=== PATIENT | male | born 1975 | race Caucasian/White ===

== ENCOUNTER 2017-02-03 16:53 | Emergency (ER) | payer BC ==
[~2017-02-03] VITALS: Ht 182.9 cm; Wt 77.8 kg
[~2017-02-03 16:53] MED LIST: LAMO200T35 PO; LPT/20 PO
[2017-02-03 17:08] VITALS: TEMP 36.7; Ht 182.9 cm; Wt 77.8 kg
[2017-02-03] MEDS ORDERED: CYNI1000 INJ (17:25)
[2017-02-03] MEDS ORDERED: LPT/20 PO (17:25)
[2017-02-03] MEDS ORDERED: LSN5 PO (17:25)
[2017-02-03] MEDS ORDERED: LAMO200T35 PO (17:25)
[2017-02-03] MEDS ORDERED: ADAL1KIT SC (17:25)
[2017-02-03] MEDS ORDERED: FLX10 PO (17:26)
[2017-02-03] MEDS ORDERED: PRED10TA PO (17:26)
[2017-02-03] MEDS ORDERED: KETOROLAC TROMETHAMINE 30 MG/ML VIAL IV STA (17:38)
--- NOTE | 2017-02-03 17:44 | EMERGENCY ROOM VISIT NOTE ---
History Report prepared by Shady: Marialuisa Laboy Under the Supervision of: Dr. Cade Tian M.D. 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 He notes a lump on his right jaw. He reports difficulty swallowing, swollen neck, and difficulty chewing. He currently rates his pain a 5/10 in severity. He also notes a possible injury to his neck and shoulders two weeks ago when he was working under his vehicle. He has seen his PCP and was treated for his shoulder pain. He notes pelvic pain. He denies any ear aches, tooth aches, fevers, post nasal drip, shortness of breath, trauma, bug bites, or headache. He has a history of HTN and ankylosing spondylitis, for which he takes Humira. He also takes Lipitor. 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 He notes difficulty swallowing, difficulty chewing, and swollen neck. He notes shoulder pain and pelvic pain. He denies any ear aches, tooth aches, post nasal drip, trauma, or bug bites. Review of Systems See HPI for pertinent positives & negatives. A total of 10 systems reviewed and were otherwise negative. Past Medical & Surgical Medical Problems: (1) Ankylosing spondylitis (2) Hypertension Old medical records were reviewed. Nurse's notes were reviewed and I agree with. Family History Heart disease Hypertension Social History Smoking Status: Never Smoker Alcohol Use: none Drug Use: none Marital Status: Housing Status: lives alone Occupation Status: employed Current/Historical Medications Scheduled Adalimumab (Humira), 1 DOSE SC Q2WKS Atorvastatin (Atorvastatin Calcium), 20 MG PO DAILY Cyanocobalamin (Cyanocobalamin), 1 DOSE INJ MONTHLY Lamotrigine (Lamictal), 200 MG PO DAILY Lisinopril (Lisinopril), 5 MG PO DAILY Prednisone (Prednisone), 10 MG PO UD Scheduled PRN Cyclobenzaprine HCl (Cyclobenzaprine HCl), 10 MG PO HS PRN for Muscle Spasms Allergies Coded Allergies: No Known Allergies (Unverified , 02/03/17) Physical Exam Vital Signs Date Time Temp Pulse Resp B/P (MAP) Pulse Ox O2 Delivery O2 Flow Rate FiO2 02/03/17 19:26 75 18 134/89 100 Room Air 02/03/17 17:08 36.7 97 18 143/92 97 Room Air Physical Exam General: Non-ill appearing young male in no acute distress. HEENT: Normal cephalic atraumatic. Pupils are equal round and reactive to light. Extraocular movements are intact. Oropharynx is pink with moist mucous membranes and mild trismus. Posterior oropharynx has no lesions or asymmetry. Floor of the mouth is soft. No swelling of the mouth lips or tongue. Neck: Supple with a midline trachea. No meningeal signs or stiffness, no JVD or bruits. No Stridor. Chest: Clear to auscultation bilaterally. No wheezes or rhonchi. No increased work of breathing. Heart: regular rate and rhythm. Abdomen: Soft nontender, nondistended without rebound guarding or rigidity. Extremities: No cyanosis clubbing or edema. No calf tenderness or assymetry Spine/Back. Non tender to palpation. No CVA tenderness Skin: Good turgor without rashes. Neurologic exam: Cranial nerves two through 12 are intact. Motor and sensation are intact and symmetrical throughout. Medical Decision & Procedures ER Provider Diagnostic Interpretation: Radiology results as stated below per my review and radiologist interpretation: CHEST ONE VIEW PORTABLE HISTORY: 41 years-old Male CHEST PAIN acute atypical chest pain COMPARISON: None available TECHNIQUE: Portable AP view of the chest FINDINGS: Cardiomediastinal and hilar silhouettes are within normal limits. Linear subsegmental atelectasis of the left lung base. No pneumothorax, pleural effusion, focal airspace consolidation or overt pulmonary edema. Bones of the chest are grossly intact. IMPRESSION: No acute cardiopulmonary process. The above report was generated using voice recognition software. It may contain grammatical, syntax or spelling errors. Electronically signed by: Lucius Reyez M.D. 02/03/2017 6:11 PM Dictated Date/Time: 02/03/2017 6:10 PM SOFT TISSUE NECK WITH HISTORY: 41 years-old Male eval for abcess, parotid gland disease acute right facial swelling with concern for possible parotid abscess. COMPARISON: None available TECHNIQUE: Multiple axial CT images of the soft tissues of the neck were obtained following the intravenous administration of 116 mL Optiray 320 IV contrast. A dose lowering technique was used consistent with the principals of STEVEN. FINDINGS: The nasopharynx, oral pharynx and hypopharynx are patent. The vallecula and piriform sinuses are within normal limits. The epiglottis and aryepiglottic folds are within normal limits. The glottis and subglottic airway are unremarkable. No peritonsillar abscess. Thyroid is homogeneous. The bilateral parotid, submandibular and sublingual glands are within normal limits. Bilateral carotid arteries are patent. The left vertebral artery is dominant. There is no significant soft tissue swelling or drainable fluid collections identified. Imaged lung apices are clear. No pathologic-appearing adenopathy. Orbits appear symmetric. Image intracranial structures demonstrate no acute abnormality. Mastoid air cells and middle ear cavities are clear. Mild mucosal thickening of the right sphenoid sinus. The remaining paranasal sinuses are generally clear. Mild intervertebral disc space narrowing with uncovertebral spurring at C5-C6. No significant odontogenic disease identified. IMPRESSION: 1. No significant soft tissue swelling, drainable fluid collection or abscess identified. Bilateral parotid and submandibular glands are within normal limits. 2. Mild intervertebral disc space narrowing with uncovertebral spurring incidentally noted at C5-C6. 3. Mild sphenoid sinus disease. The above report was generated using voice recognition software. It may contain grammatical, syntax or spelling errors. Electronically signed by: Lucius Ryeez M.D. 02/03/2017 7:23 PM Dictated Date/Time: 02/03/2017 7:13 PM Laboratory Results 02/03/17 17:50 Red Blood Count 4.48, Mean Corpuscular Volume 92.4, Mean Corpuscular Hemoglobin 32.6, Mean Corpuscular Hemoglobin Concent 35.3, Mean Platelet Volume 9.6, Neutrophils (%) (Auto) 66.5, Lymphocytes (%) (Auto) 21.7, Monocytes (%) (Auto) 9.8, Eosinophils (%) (Auto) 1.3, Basophils (%) (Auto) 0.0, Neutrophils # (Auto) 5.51, Lymphocytes # (Auto) 1.80, Monocytes # (Auto) 0.81, Eosinophils # (Auto) 0.11, Basophils # (Auto) 0.00 02/03/17 17:50 Test 02/03/17 17:50 02/03/17 18:15 White Blood Count 8.29 K/uL (4.8-10.8) Red Blood Count 4.48 M/uL (4.7-6.1) Hemoglobin 14.6 g/dL (14.0-18.0) Hematocrit 41.4 % (42-52) Mean Corpuscular Volume 92.4 fL (80-100) Mean Corpuscular Hemoglobin 32.6 pg (25-34) Mean Corpuscular Hemoglobin Concent 35.3 g/dl (32-36) Platelet Count 166 K/uL (130-400) Mean Platelet Volume 9.6 fL (7.4-10.4) Neutrophils (%) (Auto) 66.5 % Lymphocytes (%) (Auto) 21.7 % Monocytes (%) (Auto) 9.8 % Eosinophils (%) (Auto) 1.3 % Basophils (%) (Auto) 0.0 % Neutrophils # (Auto) 5.51 K/uL (1.4-6.5) Lymphocytes # (Auto) 1.80 K/uL (1.2-3.4) Monocytes # (Auto) 0.81 K/uL (0.11-0.59) Eosinophils # (Auto) 0.11 K/uL (0-0.5) Basophils # (Auto) 0.00 K/uL (0-0.2) RDW Standard Deviation 44.4 fL (36.4-46.3) RDW Coefficient of Variation 13.3 % (11.5-14.5) Immature Granulocyte % (Auto) 0.7 % Immature Granulocyte # (Auto) 0.06 K/uL (0.00-0.02) Erythrocyte Sedimentation Rate 12 mm/hr (0-14) Anion Gap 3.0 mmol/L (3-11) Est Creatinine Clear Calc Drug Dose 116.2 ml/min Estimated GFR () 120.8 Estimated GFR (Non- 104.2 BUN/Creatinine Ratio 8.5 (10-20) Uric Acid 4.5 mg/dl (2.6-7.2) Calcium Level 8.9 mg/dl (8.5-10.1) Total Bilirubin 0.3 mg/dl (0.2-1) Direct Bilirubin 0.1 mg/dl (0-0.2) Aspartate Amino Transf (AST/SGOT) 11 U/L (15-37) Alanine Aminotransferase (ALT/SGPT) 34 U/L (12-78) Alkaline Phosphatase 81 U/L (45-117) C-Reactive Protein 1.51 mg/dl (0-0.29) Total Protein 7.1 gm/dl (6.4-8.2) Albumin 3.9 gm/dl (3.4-5.0) Lipase 578 U/L (73-393) Lyme Disease IgG Antibody NEG (NEG) Lyme Disease IgM Antibody NEG (NEG) Monoscreen NEG (NEG) Influenza Type A Antigen Neg for Influ A (NEG) Influenza Type B Antigen Neg for Influ B (NEG) Laboratory studies as stated above per my review. Medications Administered Medications (Trade) Dose Ordered Sig/Junie Route Start Time Stop Time Status Last Admin Dose Admin Ketorolac Tromethamine (Toradol Inj) 30 mg NOW STAT IV 02/03/17 17:38 02/03/17 17:41 DC 02/03/17 18:40 30 MG ECG Indication: other (throat pain) Rate (beats per minute): 91 Rhythm: normal sinus Findings: no acute ischemic change, no ectopy Change: Rate has increased when compared to 07/20/2014. ED Course 1728: Past medical records reviewed. The patient was evaluated in room C2B, and a complete history and physical examination were performed. 1728: Ordered Toradol 30 mg IV 1729: I reassessed the patient at this time. He is feeling better and resting comfortably. 1749: I reassessed the patient at this time. He is feeling better and resting comfortably. I discussed the results and treatment plan with the patient. I answered all pertaining questions that he had. He expressed understanding and verbalized agreement. The patient will be discharged home. Medical Decision Allergies Differentials include, but are not limited to; viral illness, abscess , parotid gland disease, infection and Lyme disease. This patient comes in as described above. He's having pain along his right lateral jaw. Also in the anterior neck, it hurts when he swallows. He appears non-ill appearing. He has no headache and he has no meningeal signs or stiffness. He has nothing to suggest meningitis encephalitis or sepsis. The floor his mouth is soft does not suggest Ludwigs angina. His posterior oropharynx is wide open. She also has some joint aches. He is on Humira for ankylosing spondylitis. IV access established and he was given IV Toradol. Multiple blood testing was obtained. His white count is not elevated, sedimentation rate is not elevated either . CRP is mildly elevated. He has no significant electrolyte or metabolic abnormalities. Chest x-ray was unremarkable. I did a CAT scan of soft tissue of his neck. It was unremarkable. There is no abscess or any parotid disease. I do not think he has mumps. He has no abscess seen. Influenza and mono were both negative. This may be more of some sort of viral illness. He is nontoxic. I will have him continue to use [id number] ibuprofen and/or acetaminophen but do not exceed the [id number] recommended dosages. He should follow-up with his regular doctor in 1-2 days. Return to ER if: Increasing pain, worsening of symptoms, any new problems or concerns. Medication Reconcilliation Current Medication List: was personally reviewed by me Blood Pressure Screening Patient's blood pressure: Elevated blood pressure Blood pressure disposition: Referred to PCP Impression Primary Impression: Sorethroat Additional Impressions: Jaw pain Anterior neck pain Scribe Attestation The scribe's documentation has been prepared under my direction and personally reviewed by me in its entirety. I confirm that the note above accurately reflects all work, treatment, procedures, and medical decision making performed by me. Departure Information Dispostion Home / Self-Care Referrals Joi Fink M.D. (PCP) Forms HOME CARE DOCUMENTATION FORM, IMPORTANT VISIT INFORMATION, WORK / SCHOOL INSTRUCTIONS Patient Instructions My [facility] Additional Instructions Rest. Drink plenty of fluids. Use acetaminophen/Tylenol a maximum of 2 pills every 6 hours if needed for pain Return if: Fever, worsening of symptoms, shortness of breath, any new problems or concerns Follow-up with your doctor 1-2 days for recheck Problem Qualifiers
[2017-02-03] MEDS ORDERED: OPTIRAY 320 IV PRN (17:45)
--- NOTE | 2017-02-03 18:12 | DIAGNOSTIC IMAGING REPORT ---
CHEST ONE VIEW PORTABLE HISTORY: 41 years-old Male CHEST PAIN acute atypical chest pain COMPARISON: None available TECHNIQUE: Portable AP view of the chest FINDINGS: Cardiomediastinal and hilar silhouettes are within normal limits. Linear subsegmental atelectasis of the left lung base. No pneumothorax, pleural effusion, focal airspace consolidation or overt pulmonary edema. Bones of the chest are grossly intact. IMPRESSION: No acute cardiopulmonary process. The above report was generated using voice recognition software. It may contain grammatical, syntax or spelling errors. Electronically signed by: Lucius Reyez M.D. 02/03/2017 6:11 PM Dictated Date/Time: 02/03/2017 6:10 PM
[2017-02-03 18:21] LABS: COMPLETE YES; EOS % 1.3 %; HEMATOCRIT 41.4 % (42-52); IG% 0.7 %; LYMPH % 21.7 %; MEAN CELL VOLUME 92.4 fL (80-100); MEAN CORPUSCULAR HEMOGLOBIN 32.6 pg (25-34); MEAN CORPUSCULAR HGB CONC 35.3 g/dl (32-36); MEAN PLATELET VOLUME 9.6 fL (7.4-10.4); MONO % 9.8 %; NEUT % 66.5 %; PLATELET COUNT 166 K/uL (130-400); RED BLOOD COUNT 4.48 M/uL (4.7-6.1); WHITE BLOOD COUNT 8.29 K/uL (4.8-10.8)
[2017-02-03 18:38] LABS: BUN/CREATININE RATIO 8.5 (10-20); C-REACTIVE PROTEIN 1.51 mg/dl (0-0.29); CALCIUM 8.9 mg/dl (8.5-10.1); CREATININE 0.9 mg/dl (0.60-1.40); POTASSIUM 3.4 mmol/L (3.5-5.1); URIC ACID 4.5 mg/dl (2.6-7.2)
[2017-02-03 19:22] LABS: LYME DISEASE AB IGG NEG (NEG); LYME DISEASE AB IGM NEG (NEG)
--- NOTE | 2017-02-03 19:24 | DIAGNOSTIC IMAGING REPORT ---
SOFT TISSUE NECK WITH HISTORY: 41 years-old Male eval for abcess, parotid gland disease acute right facial swelling with concern for possible parotid abscess. COMPARISON: None available TECHNIQUE: Multiple axial CT images of the soft tissues of the neck were obtained following the intravenous administration of 116 mL Optiray 320 IV contrast. A dose lowering technique was used consistent with the principals of STEVEN. FINDINGS: The nasopharynx, oral pharynx and hypopharynx are patent. The vallecula and piriform sinuses are within normal limits. The epiglottis and aryepiglottic folds are within normal limits. The glottis and subglottic airway are unremarkable. No peritonsillar abscess. Thyroid is homogeneous. The bilateral parotid, submandibular and sublingual glands are within normal limits. Bilateral carotid arteries are patent. The left vertebral artery is dominant. There is no significant soft tissue swelling or drainable fluid collections identified. Imaged lung apices are clear. No pathologic-appearing adenopathy. Orbits appear symmetric. Image intracranial structures demonstrate no acute abnormality. Mastoid air cells and middle ear cavities are clear. Mild mucosal thickening of the right sphenoid sinus. The remaining paranasal sinuses are generally clear. Mild intervertebral disc space narrowing with uncovertebral spurring at C5-C6. No significant odontogenic disease identified. IMPRESSION: 1. No significant soft tissue swelling, drainable fluid collection or abscess identified. Bilateral parotid and submandibular glands are within normal limits. 2. Mild intervertebral disc space narrowing with uncovertebral spurring incidentally noted at C5-C6. 3. Mild sphenoid sinus disease. The above report was generated using voice recognition software. It may contain grammatical, syntax or spelling errors. Electronically signed by: Lucius Reyez M.D. 02/03/2017 7:23 PM Dictated Date/Time: 02/03/2017 7:13 PM
[2017-02-03 19:26] VITALS: BP 134/89; PULSE 75; O2SAT 100
== END 2017-02-03 19:55 | disposition home or self-care (01) ==
LOC: C.EDB 16:55 → C.EDC 19:55
DX: J02.9 Acute pharyngitis, unspecified (principal); R68.84 Jaw pain; M54.2 Cervicalgia; I10 Essential (primary) hypertension; M45.9 Ankylosing spondylitis of unspecified sites in spine; Z82.49 Family history of ischemic heart disease and other diseases of the circulatory system

== ENCOUNTER 2024-07-08 13:10 | Observation (INO) ==
--- OUTSIDE RECORDS SUMMARY | 2024-07-08 13:15 | External Medical Summary | Summary of Care ---
Author Name Unknown Organization [facility] Address [address] [facility] [place] [address] Phone [phone] Care Team Providers Care Social Worker Health Services Name Role Phone Joi Fink MD Primary Care Provider + Reason for Visit * Reason Comments eRx-Medication Refill Encounter Details Date Type Department Care Team (Late st Contact Info) Description 05/12/2024 Refill Rheumatology [facility] [address] [place] [address] Jesus Trejo CRNP [address] [facility] [place] [address] Ankylosing spondylitis of multiple sites in spine (HCC) Allergies Active Allergy Reactions Criticality Noted Date Comments Adalimumab 03/26/2017 documented as of this encounter (statuses as of 05/13/2024) Medications BD Luer-Mario Syringe 25G X 5/8" 3 ML (Syringe/Needle (Disp)) USE 1 ML SUBCUTANEOUSELY ONCE A MONTH 3 Each 3 023 Active Lisinopril 5 MG Oral Tablet (Prinivil)Indic ations:HTN, goal below 130/80 TAKE 1 TABLET IN THE MORNING 90 Tablet 3 024 Active Atorvastatin Calcium 20 MG Oral Tablet (Lipitor)Indica tions:Hyperlipi demia TAKE 1 TABLET DAILY 90 Tablet 3 024 Active Celecoxib 200 MG Oral Capsule (CeleBREX)Indic ations:Ankylosi ng spondylitis of multiple sites in spine ([facility]) TAKE 1 CAPSULE BY MOUTH 2 TIMES A DAY NEEDED WITH MORNING AND EVENING MEALS 180 Capsule 3 024 Active lamoTRIgine 200 MG Oral Tablet (LaMICtal)Indic ations:Bipolar II disorder (HCC) Take 1/2 tablet in morning and 1 tablet at bedtime 135 Tablet 1 025 Active Cyanocobalamin 1000 MCG/ML Injection Solution (Cyanocobalamin )Indications:Pe rnicious anemia INJECT DIRECTED 1ML (1,000 MCG) EVERY 30 DAYS . 3 mL 2 025 Active Cosentyx Sensoready (300 MG) 150 MG/ML Subcutaneous Solution Auto-injector (secukinumab)In dications:Ankyl osing spondylitis of multiple sites in spine (HCC) INJECT THE CONTENTS OF 2 PENS (300 MG) UNDER THE SKIN EVERY 4 WEEKS 2 mL 5 025 Active Cosentyx Sensoready (300 MG) 150 MG/ML Subcutaneous Solution Auto-injector (secukinumab)In dications:Ankyl osing spondylitis of multiple sites in spine (HCC) INJECT THE CONTENTS OF 2 PENS (300 MG) UNDER THE SKIN EVERY 4 WEEKS 2 mL 5 024 2024 Discontinued documented as of this encounter (statuses as of 05/13/2024) Active Problems Problem Noted Date Diagnosed Date Encounter for long-term (current) use of medicat ions 11/12/2022 Ankylosing spondylitis of multiple sites in spin e 04/28/2019 Bipolar affective disorder, current episode hypo manic 04/28/2019 Immunocompromised patient 10/27/2018 Trismus 02/12/2017 Bipolar disorder Other vitamin B12 deficiency anemia documented as of this encounter (statuses as of 05/13/2024) Resolved Problems Problem Noted Date Diagnosed Date Resolved Date Ankylosing spondylitis 03/25/201711/12 Acute parotitis 02/12/2017 03/25/2017 ADVANCE DIRECTIVE INFORMATION 12/22/2005 12/08/2016 Overview (12/22/2005): No, Advance Directive brochure given to patient. Dyslipidemia, goal to be determined 03/14/2012 Major depressive disorder Overview (12/15/2016): ICD-10 update of inactive term Ankylosing spondylitis 08/01 documented as of this encounter (statuses as of 05/13/2024) Immunizations Name Administration Dates Next Due COVID-19, mRNA, LNP-s, PF, B ooster, 100mcg/0.5mg (Moderna) 04/16/2021 Hepatitis B, 20+ yrs 05/10/2023,12/08/2022,11/05 Pneumococcal Conjugate Vacc, 13 Valent (Prevnar) 04/26/2018 Pneumococcal Polysaccharide PPV23 (Pneumovax) 10/27/2018 Seasonal Influenza, PF, 6 M & above, IM , (FluLaval or Fluzone) 11/05/2022,11/04/2021,10/31/2020,11/01,10/27/2018,11/29/2017,12/08/2016 Seasonal Influenza, Quadriva lent, No Preserve, IM 01/14/2016 Seasonal Influenza, Trivalen t, (IIV3), PF, (Fluzone) 12/09/2023 TD, Preservative Free 03/15/2018 TDAP, Age 7 and older, IM (Adacel) 08/15/2007 documented as of this encounter Social History Tobacco Use Types Packs/Day Years Used Date Smoking Tobacco: Never Smokeless Tobacco: Never Alcohol Use Standard Drinks/Week Comments Yes 5 (1 standard drink = 0.6 oz pur e alcohol) occasional PHQ-2 Answer Date Recorded PHQ Adult Total Score 0 05/29/2021 Hunger Vital Sign Answer Date Recorded Within the past 12 months, y ou worried that your food would run out before you got the money to buy more. Never true 12/08/19 24 Within the past 12 months, t he food you bought just didn't last and you didn't have money to get more. Never true 12/08/2023 Childcare Answer Date Recorded Do you feel overwhelmed with taking care of a child, family member or friend? No 12/08/2023 Does your family need help f inding childcare? (Household - for ages 0-17 years) Not on file 12/08/2023 Clothing Answer Date Recorded Have you been unable to get clothing when it was really needed? No 12/08/2023 Is your family able to get c lothes or diapers when needed? (Household - for ages 0-17 years) Not on file 12/08/2023 Personal Safety Answer Date Recorded Do you feel unsafe or have concerns for your saf ety? No 12/08/2023 Do you have concerns for you r family's safety? (Household - for ages 0-17 years) Not on file 12/08/2023 Utilities Answer Date Recorded Do you have trouble paying y our heating, water, or electric bill? No 12/08/2023 Is your family able to pay t he heat, water, or electric bill? (Household - for ages 0-17 years) Not on file 12/08/2023 Does your family have access to good internet? (Household - for ages 0-17 years) Not on file 12/08/2023 Employment Status Answer Date Recorded Are you unemployed or without regular income? No 12/08/2023 Does the household have a re lar source of income? (Household - for ages 0-17 years) Not on file 12/08/2023 Social Connections Answer Date Recorded How often do you feel lonely or isolated from th ose around you? Rarely 12/08/2023 Financial Resource Strain Answer Date R ecorded Do you have any trouble payi ng for your medications, or do you think you might in the future? No 12/08/2023 Does your family have troubl e paying for medicine? (Household - for ages 0-17 years) Not on file 12/08/2023 Transportation Needs Answer Date Record ed Do you have trouble getting a ride to medical visits or work? (Adult - for ages 18 years and over) Not on file 12/08/2023 Does your family have a hard time getting a ride to doctors visits? (Household - for ages 0-17 years) Not on file 12/08/2023 Has lack of transportation k ept you from medical appointments, meetings, work, or from getting things needed for daily living? Check all that apply. No 12/08/2023 Do you (or your family) have trouble finding or paying for a ride (transportation)? (Household - for ages 0-17 years) Not on file 12/08/2023 Housing Stability Answer Date Recorded Do you currently live in a s helter or have no steady place to sleep at night? No 12/08/2023 Do you think you are at risk of becoming homeless? (Adult - for ages 18 years and over) Not on file 12/08/2023 Does your family worry about paying for your home or becoming homeless? (Household - for ages 0-17 years) Not on file 1 Are you homeless or worried that you might be in the future? No 12/08/2023 Are you (or your family) caitie eless or worried that you might be in the future? (Household - for ages 0-17 years) Not on file Food Insecurity Answer Date Recorded Do you need food for this week? No 12/08/2023 Are you able to get enough f ood for your family? (Household - for ages 0-17 years) Not on file 12/08/2023 Does your family need food t his week? (Household - for ages 0-17 years) Not on file 12/08/2023 Do you always have enough fo od for your family? (Household - for ages 0-17 years) Not on file 12/08/2023 Food Insecurity Answer Date Recorded Within the past 12 months, y ou worried that your food would run out before you got the money to buy more. Never true 12/08/19 24 Within the past 12 months, t he food you bought just didn't last and you didn't have money to get more. Never true 12/08/2023 Do you need food for this week? No 12/08/2023 Sex and Gender Information Value Date Recorded Sex Assigned at Male 10/27/2018 11:03 AM EDT Legal Sex Male 5:27 AM EST Gender Identity Male 10/27/2018 11:03 AM EDT Sexual Orientation Straight 10/27/2018 11 :03 AM EDT Occupation Industry Job Start Date Job End Date Not on file Not on file Not on file Not on file documented as of this encounter Miscellaneous Notes * Telephone Encounter - Whitney Johnson, [facility] - 05/13/2024 8:41 AM EDTSigned Prescriptions: Disp Refills Cosentyx Sensoready (300 MG) 150 MG/ML Sub*2 mL 5 Sig: INJECT THE CONTENTS OF 2 PENS (300 MG) UNDER THE SKIN EVERY 4 WEEKSAuthorizing Provider: JESUS TREJO User: WHITNEY JOHNSON * Telephone Encounter - Whitney Johnson RP - 05/13/2024 8:40 AM EDT Rheumatology: Refill Request(s) Per review of the refill parameters, Medication was refilled Whitney Johnson RPh [facility] Clinical Pharmacist Rheumatology Department 05/13/2024,8:40 AM * Telephone Encounter - Pasha Ramirez - 05/12/2024 2:59 PM EDTPending Prescriptions: Disp Refills Cosentyx Sensoready (300 MG) 150 MG/ML Sub*2 mL 5 Sig: INJECT THE CONTENTS OF 2 PENS (300 MG) UNDER THE SKIN EVERY 4 WEEKS * Telephone Encounter - Pasha Ramirez - 05/12/2024 2:57 PM EDT Did you pend patient's preferred pharmacy and medication before forwarding?yes Pharmacy: [facility] [address] Pending Prescriptions: Disp Refills Cosentyx Sensoready (300 MG) 150 MG/ML Claros*2 mL 5 Sig: INJECT THE CONTENTS OF 2 PENS (300 MG) UNDER THE SKIN EVERY 4 WEEKS Last Visit: Visit date not found (in office), Visit date not found (telemedicine) Next Visit: 11/22/2024 If no future appointments scheduled, and last appointment is greater than a year ago, please schedule patient for a follow-up appointment Last date the medication was ordered: 12/14/2023 Is this request for a controlled substance?No Urine Drug Screen:No results found for this or any previous visit. Patient Phone Numbers Labs: Lab Results Component Value Date/Time CREAT 1.1 11/23/2023 10:40 AM CREAT 1.1 12/01/2019 01:53 PM POTASSIUM 4.0 11/23/2023 10:40 AM POTASSIUM 3.8 12/01/2019 01:53 PM TSH 1.69 12/08/2016 09:03 AM LDL 81 11/23/2023 10:40 AM LDL 73 04/12/2019 01:42 PM ALT 27 11/23/2023 10:40 AM ALT 23 10/25/2019 03:36 PM HGBA1C 5.6 04/12/2019 01:42 PM documented in this encounter Plan of Treatment Upcoming Encounters Date Type Department Care Team (Late st Contact Info) Description 07/31/2024 2:30 PM EDT Telemedicine Psychiatry, [facility] [address] [place] [address] Jessy Booker MD [address] [place] [address] 09/06/2024 2:30 PM EDT Office Visit Otolaryngology [facility] [address] [place] [address] [address] Miguel Lewis PA-C [address] [place] [address] 11/09/2024 1:00 PM EDT Office Visit General Internal Medicine [facility] [address] [facility] [address] Joi Fink MD [address] [place] [address] 11/22/2024 3:00 PM EDT Office Visit Rheumatology [facility] [address] [place] [phone] Jesus Trejo CRNP [address] [facility] [place], [place] [address] Scheduled Procedures Name Priority Associated Diagnoses Date/Ti me COLONOSCOPY FLEXIBLE PROXIMA L DIAGNOSTIC Recall History of colonic polyps Health Maintenance Due Date Last Done Comments Fecal Occult Blood Test 2018 Sigmoidoscopy 2018 Colonoscopy 05/19/2023 05/18/2018, 05/18/2018 Zoster Vaccines (1 of 2) 07/27/2023 COVID-19 Vaccine (2 - season) 2023 04/16/2021 Pneumococcal Vaccine: 50+ Years (3 of 3 - PCV20 or PCV21) 10/28/2023 10/27/2018, 04/26/2018 Colorectal Cancer Screening 12/12/2023 Cologuard 12/10/2026 12/11/2023, 11/22, 12/05/2023 DTap/Tdap Vaccines (3 - Td or Tdap) 03/15/2028 03/15/2018, 08/15/2007 Lipid Panel 11/22/2028 11/23/2023, 10/23, 02/18/2022, Additional history exists RETIRED - COLONOSCOPY-EVERY 5 YRS AGES 18-100 Discontinued 05/18/2018, 05/18/2018 Influenza Vaccine (FLU shot) Completed 12/09/2023, 11/05/2022, 11/04/2021, Additional history exists HPV (Gardasil) Vaccine Aged Out No lo nger eligible based on patient's age to complete this topic MENINGOCOCCAL (MENACTRA/MENVEO) Aged Out No longer eligible based on patient's age to complete this topic Meningitis B Vaccine (Bexsero/Trumemba) Aged Out No longer eligible based on patient's age to complete this topic documented as of this encounter Medical Devices Not on filedocumented as of this encounter Visit Diagnoses Diagnosis Ankylosing spondylitis of multiple sites in spine (HCC) Ankylosing spondylitis documented in this encounter Care Teams Social Worker Health Services Relationship Specialty Start Date End Date Joi Fink MD [address] [place] [address] PCP - General Internal Medicine 12/04/13 documented as of this encounter
--- OUTSIDE RECORDS SUMMARY | 2024-07-08 13:15 | External Medical Summary | Summary of Care ---
Author Name Unknown Organization [facility] Address [address] [facility] [place] [address] Phone [phone] Care Team Providers Care Slip Operator Name Role Phone Giselle Fink MD Primary Care Provider + Reason for Visit * Reason Comments eRx-Medication Refill Encounter Details Date Type Department Care Team (Late st Contact Info) Description 04/30/2024 Refill General Internal Medicine [facility] [address] [facility] [place] [address] Giselle Fink MD [address] [facility] [address] Pernicious anemia Allergies Active Allergy Reactions Criticality Noted Date Comments Adalimumab 03/26/2017 documented as of this encounter (statuses as of 05/01/2024) Medications BD Luer-Mario Syringe 25G X 5/8" 3 ML (Syringe/Needle (Disp)) USE 1 ML SUBCUTANEOUSELY ONCE A MONTH 3 Each 3 023 Active Lisinopril 5 MG Oral Tablet (Prinivil)Indic ations:HTN, goal below 130/80 TAKE 1 TABLET IN THE MORNING 90 Tablet 3 024 Active Cosentyx Sensoready (300 MG) 150 MG/ML Subcutaneous Solution Auto-injector (secukinumab)In dications:Ankyl osing spondylitis of multiple sites in spine (HCC) INJECT THE CONTENTS OF 2 PENS (300 MG) UNDER THE SKIN EVERY 4 WEEKS 2 mL 5 024 Active Atorvastatin Calcium 20 MG Oral Tablet (Lipitor)Indica tions:Hyperlipi demia TAKE 1 TABLET DAILY 90 Tablet 3 024 Active Celecoxib 200 MG Oral Capsule (CeleBREX)Indic ations:Ankylosi ng spondylitis of multiple sites in spine (HCC) TAKE 1 CAPSULE BY MOUTH 2 TIMES [...] DAYS . 3 mL 2 025 Active Cyanocobalamin 1000 MCG/ML Injection Solution (Cyanocobalamin )Indications:Pe rnicious anemia INJECT DIRECTED 1ML (1,000 MCG) EVERY 30 DAYS . 3 mL 2 024 2024 Discontinued documented as of this encounter (statuses as of 05/01/2024) Active Problems Problem Noted Date Diagnosed Date Encounter for long-term (current) use of medicat ions 11/12/2022 Ankylosing spondylitis of multiple sites in spin e 04/28/2019 Bipolar affective disorder, current episode hypo manic 04/28/2019 Immunocompromised patient 10/27/2018 Trismus 02/12/2017 Bipolar disorder Other vitamin B12 deficiency anemia documented as of this encounter (statuses as of 05/01/2024) Resolved Problems Problem Noted Date Diagnosed Date Resolved Date Ankylosing spondylitis 03/25/201711/12 Acute parotitis 02/12/2017 03/25/2017 ADVANCE DIRECTIVE INFORMATION 12/22/2005 12/08/2016 Overview (12/22/2005): No, Advance Directive brochure given to patient. Dyslipidemia, goal to be determined 03/14/2012 Major depressive disorder Overview (12/15/2016): ICD-10 update of inactive term Ankylosing spondylitis 08/01 documented as of this encounter (statuses as of 05/01/2024) Immunizations Name Administration Dates Next Due COVID-19, [...] No 12/08/2023 Does the household have a [facility] source of income? (Household - for ages [...] encounter Miscellaneous Notes * Telephone Encounter - Giselle Fink MD - 05/01/2024 2:58 PM EDTSigned Prescriptions: Disp Refills Cyanocobalamin 1000 MCG/ML Injection Solut*3 mL 2 Sig: INJECT DIRECTED 1ML (1,000 MCG) EVERY 30 DAYS . Authorizing Provider: GISELLE FINK * Telephone Encounter - Ariella Del Toro LPN - 05/01/2024 1:38 PM EDT Pending Prescriptions: Disp Refills Cyanocobalamin 1000 MCG/ML Injection Solut*3 mL 2 Sig: INJECT DIRECTED 1ML (1,000 MCG) EVERY 30 DAYS . * Telephone Encounter - Ariella Del Toro LPN - 05/01/2024 1:37 PM EDT Did you pend patient's preferred pharmacy and medication before forwarding?yes Pharmacy: [id number] Pending Prescriptions: Disp Refills Cyanocobalamin 1000 MCG/ML Injection Solu*3 mL 2 Sig: INJECT DIRECTED 1ML (1,000 MCG) EVERY 30 DAYS . Last Visit: 12/09/2023 (in office), Visit date not found (telemedicine) Next Visit: 11/09/2024 If no future appointments scheduled, and last appointment is greater than a year ago, please schedule patient for a follow-up appointment Last date the medication was ordered: 10-14-23 Is this request for a controlled substance?No [...] 03:36 PM HGBA1C 5.6 04/12/2019 01:42 PM * Telephone Encounter - Pasha Ramirez - 04/30/2024 7:07 PM EDTPending Prescriptions: Disp Refills Cyanocobalamin 1000 MCG/ML Injection Solut*3 mL 2 Sig: INJECT DIRECTED 1ML (1,000 MCG) EVERY 30 DAYS . documented in this encounter Plan of Treatment Upcoming Encounters Date Type Department Care Team (Late st Contact Info) Description 07/31/2024 2:30 PM EDT Telemedicine Psychiatry, [facility] [address] [address] Jessy Booker MD [address] [place] [address] 09/06/2024 2:30 PM EDT Office Visit Otolaryngology [facility] [address] [address] [address] Miguel Lewis PA-C [address] [address] 11/09/2024 1:00 PM EDT Office Visit General Internal Medicine [facility] [address] [facility] [place] [address] Giselle Fink MD [address] [place] [address] 11/22/2024 3:00 PM EDT Office Visit Rheumatology [facility] [address] [place] [phone] Rohini Bettencourt CRNP [address] [facility] [place] [address] Scheduled Procedures Name Priority Associated Diagnoses Date/Ti [...] as of this encounter Visit Diagnoses Diagnosis Pernicious anemia documented in this encounter Care Teams Slip Operator Relationship Specialty Start Date End Date Giselle Fink MD [address] [place] [address] PCP - General Internal Medicine 12/04/13 documented as of this encounter
--- OUTSIDE RECORDS SUMMARY | 2024-07-08 13:16 | External Medical Summary | Summary of Care ---
Author Name Unknown Organization [facility] Address [address] [facility] [place] [address] Phone [phone] Care Team Providers Care Import Export Agent Name Role Phone Joi Fink MD Primary Care Provider + Reason for Visit * Reason Comments Medication Management Encounter Details Date Type Department Care Team (Late st Contact Info) Description 04/17/2024 2:30 PM [facility] [address] [place] [address] Jessy Booker MD [address] [place] [address] Bipolar II disorder (HCC)* Allergies Active Allergy Reactions Criticality Noted Date Comments Adalimumab 03/26/2017 documented as of this encounter (statuses as of 04/17/2024) Medications BD Luer-Mario Syringe 25G X 5/8" 3 ML (Syringe/Needle (Disp)) USE 1 ML SUBCUTANEOUSELY ONCE A MONTH 3 Each 3 10/21/19 23 Active Cyanocobalamin 1000 MCG/ML Injection Solution (Cyanocobalamin )Indications:Pe rnicious anemia INJECT DIRECTED 1ML (1,000 MCG) EVERY 30 DAYS . 3 mL 2 10/14/19 24 Active Lisinopril 5 MG Oral Tablet (Prinivil)Indic ations:HTN, goal below 130/80 TAKE 1 TABLET IN THE MORNING 90 Tablet 3 11/30/19 24 Active Cosentyx Sensoready (300 MG) 150 MG/ML Subcutaneous Solution Auto-injector (secukinumab)In dications:Ankyl osing spondylitis of multiple sites in spine (HCC) INJECT THE CONTENTS OF 2 PENS (300 MG) UNDER THE SKIN EVERY 4 WEEKS 2 mL 5 12/14/19 24 Active Atorvastatin Calcium 20 MG Oral Tablet (Lipitor)Indica tions:Hyperlipi demia TAKE 1 TABLET DAILY 90 Tablet 3 12/16/19 24 Active Celecoxib 200 MG Oral Capsule (CeleBREX)Indic ations:Ankylosi ng spondylitis of multiple sites in spine (HCC) TAKE 1 CAPSULE BY MOUTH 2 TIMES A DAY NEEDED WITH MORNING AND EVENING MEALS 180 Capsule 3 12/16/19 24 Active lamoTRIgine 200 MG Oral Tablet (LaMICtal)Indic ations:Bipolar II disorder (HCC) Take 1/2 tablet in morning and 1 tablet at bedtime 135 Tablet 1 04/17/19 25 Active lamoTRIgine 200 MG Oral Tablet (LaMICtal)Indic ations:Bipolar II disorder (HCC) Take 1/2 tablet in morning and 1 tablet at bedtime 135 Tablet 1 12/08/19 24 025 Discontin ued(Refil l) documented as of this encounter (statuses as of 04/17/2024) Active Problems Problem Noted Date Diagnosed Date Encounter for long-term (current) use of medicat ions 11/12/2022 Ankylosing spondylitis of multiple sites in spin e 04/28/2019 Bipolar affective disorder, current episode hypo manic 04/28/2019 Immunocompromised patient 10/27/2018 Trismus 02/12/2017 Bipolar disorder Other vitamin B12 deficiency anemia documented as of this encounter (statuses as of 04/17/2024) Resolved Problems Problem Noted Date Diagnosed Date Resolved Date Ankylosing spondylitis 03/25/201711/12 Acute parotitis 02/12/2017 03/25/2017 ADVANCE DIRECTIVE INFORMATION 12/22/2005 12/08/2016 Overview (12/22/2005): No, Advance Directive brochure given to patient. Dyslipidemia, goal to be determined 03/14/2012 Major depressive disorder Overview (12/15/2016): ICD-10 update of inactive term Ankylosing spondylitis 08/01 documented as of this encounter (statuses as of 04/17/2024) Immunizations Name Administration Dates Next Due COVID-19, [...] on file documented as of this encounter Progress Notes * Jessy Booker MD - 04/17/2024 2:32 PM EST OUTPATIENT PSYCHIATRY RETURN VISIT DIVISION OF PSYCHIATRY [facility] [place] [facility] [place] [address] Name: Obed Aguilar : 1975 Date and Time Patient was Seen: 04/17/2024 at 2.30 pm Patient location: HOME. I was not in a hospital or clinic location. After connecting through [employer], patient was verified with two unique identifiers. Patient (or authorized legal merchandiser retail representative) was then informed that this was a Telemedicine visit and being conducted confidentially over secure lines. Methods to assure confidentiality were taken. Patient acknowledged consent and understanding of privacy and security of the Telemedicine visit. The patient agreed to participate. Physical Location of patient: Work CC: " I am doing well " INTERVAL HISTORY: Patient is a 48 year old male with H/O Bipolar II disorder stable on Lamictal 100 am and 200 mg po hs. Medical issues: Ankylosing spondylitis, HTN Patient seen in follow up. Pt reports doing well overall. Patient remains stable on medications. Denies any stressors. His youngest son just turned 18 and will be graduating this June. Oldest son has a job as a electrocardiographic technician and is on his own. Patient denies psychotic symptoms such as Auditory and visual hallucinations , Paranoia or other Delusions. Patient denies Suicidal ideation intent or plan. Denies recurrent thoughts of . DeniesSIB thoughts/actions. No HI thoughts Medical ROS and Side effects of Medications: Constitutional: (-) otherwise negative Eyes: (-) otherwise negative Cardiovascular: (-) otherwise negative Pulmonary: (-) otherwise negative Abdominal/GI: (-) otherwise negative Musculoskeletal: (-) otherwise negative Endocrine: (-) otherwise negative Skin: (-) otherwise negative Neurology: negative CURRENT MEDICATIONS: Current Outpatient Medications Medication Sig Dispense Refill BD Luer-Mario Syringe 25G X 5/8" 3 ML (Syringe/Needle (Disp)) USE 1 ML SUBCUTANEOUSELY ONCE A MONTH 3Each 3 Cyanocobalamin 1000 MCG/ML Injection Solution (Cyanocobalamin) INJECT DIRECTED 1ML (1,000 MCG) EVERY 30 DAYS . 3 mL 2 Lisinopril 5 MG Oral Tablet (Prinivil) TAKE 1 TABLET IN THE MORNING 90 Tablet 3 lamoTRIgine 200 MG Oral Tablet (LaMICtal) Take 1/2 tablet in morning and 1 tablet at bedtime 135 Tablet 1 Cosentyx Sensoready (300 MG) 150 MG/ML Subcutaneous Solution Auto-injector (secukinumab) INJECT THECONTENTS OF 2 PENS (300 MG) UNDER THE SKIN EVERY 4 WEEKS 2 mL 5 Atorvastatin Calcium 20 MG Oral Tablet (Lipitor) TAKE 1 TABLET DAILY 90 Tablet 3 Celecoxib 200 MG Oral Capsule (CeleBREX) TAKE 1 CAPSULE BY MOUTH 2 TIMES A DAY NEEDED WITH MORNING AND EVENING MEALS 180 Capsule 3 No current facility-administered medications for this visit. VITALS There were no vitals filed for this visit. Wt Readings from Last 3 Encounters: 03/06/24 76.2 kg (168 lb 1.6 oz) 12/09/23 73.4 kg (161 lb 14.4 oz) 11/22/23 73 kg (161 lb) There is no height or weight on file to calculate BMI. [place] Suicide Severity Rating Scale Results 04/17/2024 14:34 [place] SUICIDE SEVERITY RATING SCALE (C-SSRS) Have you wished you were or wished you could go to sleep and not wake up? (In the Past Month or Since Last Visit) No Have you had any actual thoughts of killing yourself? (In the Past Month or Since Last Visit) No Have you been thinking about how you might do this? (In the Past Month or Since Last Visit) No Have you had thoughts and had some intention of acting on them? (In the Past Month or Since Last Visit) No Have you started to work out or worked out the details of how to kill yourself? Do you intend to carry out this plan? (In the Past Month or Since Last Visit) No Have you ever done anything, started to do anything, or prepared to do anything to end your life? (Lifetime) Yes Was this within the past 3 months? No Level of Risk Moderate Protective Factors Social Support/Family;Cares about job/school;Willing to participate in less restrictive means of help;Help-Seeking Behaviors;Identifies reasons for living Risk Factors History of Depression;Anxiety MENTAL STATUS EVALUATION: Appearance: age-appropriate and casually dressed General: No acute distress Skin: no cuts or lesions on exposed skin surface Muscle strength and tone: no abnormal involuntary movements noticeable Gait and Station: not assessed, patient seen via teleconference Behavior: cooperative Speech: Normal in tone and rate Mood: Normal Affect: type - euthymic; range - full range; lability - no Associations: intact Thought Process: goal directed Abstract Reasoning: not tested Thought Content: denies suicidal ideations, homicidal ideations, auditory hallucinations, visual hallucinations, delusions, impulsivity to act out or preoccupation with violence Orientation: alert and oriented to person, place, time and situation Attention span/concentration as evidenced by: ability to sustain attention to examiner - intact Insight: fair Judgment: fair ASSESSMENT AND PLAN: Bipolar II disorder Plan: Medications: I have reviewed the patient’s controlled substance dispensing history in the Prescription Drug Monitoring Program in compliance with the [facility] regulations before prescribing a controlled substance. Patient will continue Lamictal 100 mg po am and 200 mg hs 90 days supply sent. 2. Therapy: Approximately 17 minutes was spent in psychotherapy, primarily supportive therapy with patient including addressing side effects of medication, psycho education about diagnosis. Using CBTto identify cognitive distortions and ways to modify those. 3. Labs: Labs reviewed on chart. 4. Safety Plan : Was completed at the time of initial visit 5. Psychoeducation: Treatment options and alternatives reviewed with patient who agrees with the above plan. Information about current medications was provided to the patient including reasons why medications are being used. Patient understood the risks, benefits, side-effects, and potential complications associated with changes in medications being proposed (both medications being started, and medications being discontinued or having dose changed). Patient is making an informed medical decision to follow the recommendations outlined in this note. Directed pt to call with any questions or concerns, worsening symptoms and/or ask for earlier appointment. Greater than 50% of the time was spent counseling or coordinating the care of the patient Risk assessment was performed. This is a patient being treated for chronic mental health conditionsand/or substance use disorder as characterized above; at the time of this visit, there was no indication that this patient was either a risk to self, others, or gravely disabled by symptoms of a mental illness or substance use disorder. At the time of this evaluation, pt did not appear to be an acute risk to self or others, there were enough protective factors in place, and it was deemed safe andappropriate to continue with treatment on an outpatient basis with return to clinic in the timeframe described above. We reviewed previous crisis plan should he/she experience worsening of symptoms before next follow-up appointment, including being aware of what resources to use according to the urgency and severityof symptoms. Obed Aguilar was able to verbalize understanding of the steps necessary to obtain help between appointments should be needed, from requesting a phone call, to requesting an appointment sooner, including reaching clinic after hours, accessing our system, and accessing emergency mental health and medical services, either at a local emergency department or by activating mobile crisis teams and EMS. Time Spent on Visit: 30 minutes Please note 17 minutes of counseling time over and above medication management was spent on management of mood/anxiety and current life stressors Billing code: 25343 RTC in 16 weeks Jessy Booker MD Psychiatry, [address] [address] documented in this encounter Plan of Treatment Upcoming Encounters Date Type Department Care Team (Late st Contact Info) Description 07/31/2024 2:30 PM EDT Telemedicine Psychiatry, [facility] [address] [place] [address] Jessy Booker MD [address] [place] [address] 09/06/2024 2:30 PM EDT Office Visit Otolaryngology [facility] [address] [place] [address] Miguel Lewis PA-C [address] [place] [address] 11/09/2024 1:00 PM EDT Office Visit General Internal Medicine [facility] [address] [facility] [address] [place] [address] Joi Fink MD [address] [facility] [place] [address] 11/22/2024 3:00 PM EDT Office Visit Rheumatology [facility] [address] [place] [phone] Rohini Bettencourt CRNP [address] [place] [address] [place] [address] Scheduled Procedures Name Priority Associated Diagnoses Date/Ti me COLONOSCOPY FLEXIBLE PROXIMA L DIAGNOSTIC Recall History of colonic polyps Health Maintenance Due Date Last Done Comments Fecal Occult Blood Test 2018 Sigmoidoscopy 2018 Colonoscopy 05/19/2023 05/18/2018, 05/18/2018 Zoster Vaccines (1 of 2) 07/27/2023 COVID-19 Vaccine (2 - 2023- season) 2023 04/16/2021 Pneumococcal Vaccine: 50+ Years [...] as of this encounter Visit Diagnoses Diagnosis Bipolar II disorder (HCC)- Primary Other bipolar disorders documented in this encounter Care Teams Import Export Agent Relationship Specialty Start Date End Date Joi Fink MD [address] [place] [address] [place] [address] PCP - General Internal Medicine 12/04/13 documented as of this encounter
--- OUTSIDE RECORDS SUMMARY | 2024-07-08 13:16 | External Medical Summary | Summary of Care ---
Author Name Unknown Organization [facility] [address] [facility] [address] Phone [phone] Care Team Providers Care Test Center Administrator Name Role Phone Joi Fink MD Primary Care Provider + Encounter Details Date Type Department Care Team (Late st Contact Info) Description 01/11/2024 Result Scan Unspecified Department Joi Fink MD [address] [place] [address] <No scans attached> Allergies Active Allergy Reactions Criticality Noted Date Comments Adalimumab 03/26/2017 documented as of this encounter (statuses as of 02/01/2024) Medications BD Luer-Mario Syringe 25G X 5/8" 3 ML (Syringe/Needle (Disp)) USE 1 ML SUBCUTANEOUSELY ONCE A MONTH 3 Each 3 10/21/19 23 Active Cyanocobalamin 1000 MCG/ML Injection Solution (Cyanocobalamin) Indications:Pern icious anemia INJECT DIRECTED 1ML (1,000 MCG) EVERY 30 DAYS . 3 mL 2 10/14/19 24 Active Lisinopril 5 MG Oral Tablet (Prinivil)Indica tions:HTN, goal below 130/80 TAKE 1 TABLET IN THE MORNING 90 Tablet 3 11/30/19 24 Active lamoTRIgine 200 MG Oral Tablet (LaMICtal)Indica tions:Bipolar II disorder (HCC) Take 1/2 tablet in morning and 1 tablet at bedtime 135 Tablet 1 12/08/19 24 Active Cosentyx Sensoready (300 MG) 150 MG/ML Subcutaneous Solution Auto-injector (secukinumab)Ind ications:Ankylos ing spondylitis of multiple sites in spine (HCC) INJECT THE CONTENTS OF 2 PENS (300 MG) UNDER THE SKIN EVERY 4 WEEKS 2 mL 5 12/14/19 24 Active Atorvastatin Calcium 20 MG Oral Tablet (Lipitor)Indicat ions:Hyperlipide javier TAKE 1 TABLET DAILY 90 Tablet 3 12/16/19 Active Celecoxib 200 MG Oral Capsule (CeleBREX)Indica tions:Ankylosing spondylitis of multiple sites in spine (HCC) TAKE 1 CAPSULE BY MOUTH 2 TIMES A DAY NEEDED WITH MORNING AND EVENING MEALS 180 Capsule 3 12/16/19 Active documented as of this encounter (statuses as of 02/01/2024) Active Problems Problem Noted Date Diagnosed Date Encounter for long-term (current) use of medicat ions 11/12/2022 Ankylosing spondylitis of multiple sites in spin e 04/28/2019 Bipolar affective disorder, current episode hypo manic 04/28/2019 Immunocompromised patient 10/27/2018 Trismus 02/12/2017 Bipolar disorder Other vitamin B12 deficiency anemia documented as of this encounter (statuses as of 02/01/2024) Resolved Problems Problem Noted Date Diagnosed Date Resolved Date Ankylosing spondylitis 03/25/201711/12 Acute parotitis 02/12/2017 03/25/2017 ADVANCE DIRECTIVE INFORMATION 12/22/2005 12/08/2016 Overview (12/22/2005): No, Advance Directive brochure given to patient. Dyslipidemia, goal to be determined 03/14/2012 Major depressive disorder Overview (12/15/2016): ICD-10 update of inactive term Ankylosing spondylitis 08/01 documented as of this encounter (statuses as of 02/01/2024) Immunizations Name Administration Dates Next Due COVID-19, [...] 12/08/2023 Does the household have a re gular source of income? (Household - for ages [...] ages 0-17 years) Not on file 12/08/2023 Sex and Gender Information Value Date Recorded Sex Assigned at Male 10/27/2018 11:03 AM EDT Legal Sex Male 5:27 AM EST Gender Identity Male 10/27/2018 11:03 AM EDT Sexual Orientation Straight 10/27/2018 11 :03 AM EDT Occupation Industry Job Start Date Job End Date Not on file Not on file Not on file Not on file documented as of this encounter Plan of Treatment Upcoming Encounters Date Type Department Care Team (Late st Contact Info) Description 03/06/2024 2:00 PM EST Office Visit Otolaryngology [facility] [address] [facility] [place] [address] Miguel Lewis PA-C [address] [facility] [place] [address] 04/05/2024 12:30 PM EST Telemedicine Psychiatry, [facility] [address] [facility] [place] [address] Jessy Booker MD [address] [place] [id number] 11/09/2024 1:00 PM EDT Office Visit General Internal Medicine [facility] [place] [address] [place] [address] Joi Fink MD [address] [facility] [place] [address] 11/22/2024 3:00 PM EDT Office Visit Rheumatology [facility] [address] [place] [address] Rohini Bettencourt CRNP [address] [place], [place] [address] Scheduled Procedures Name Priority Associated Diagnoses Date/Ti me COLONOSCOPY FLEXIBLE PROXIMA L DIAGNOSTIC Recall History of colonic polyps Health Maintenance Due Date Last Done Comments Fecal Occult Blood Test 2018 Sigmoidoscopy 2018 Colonoscopy 05/19/2023 05/18/2018, 05/18/2018 COVID-19 Vaccine (2 - season) 2023 04/16/2021 Colorectal Cancer Screening 12/06/2023 Zoster Vaccines (1 of 2) 02/23/2024 Pos tponed from 07/27/2023 (Patient Declined After Education) Cologuard 12/04/2026 12/05/2023 DTap/Tdap Vaccines (3 - Td or Tdap) 03/15/2028 03/15/2018, 08/15/2007 Lipid Panel 11/22/2028 11/23/2023, 10/23, 02/18/2022, Additional history exists RETIRED - COLONOSCOPY-EVERY 5 YRS AGES 18-100 Discontinued 05/18/2018, 05/18/2018 Pneumococcal Vaccine: Pediatrics (0 to 5 Years) and At-Risk Patients (6 to 64 Years) Aged Out 10/27/2018, 04/26/2018 No longer eligibl e based on patient's age to complete this topic Influenza Vaccine (FLU shot) Completed 12/09/2023, 11/05/2022, 11/04/2021, Additional history exists HPV (Gardasil) Vaccine Aged Out No lo nger eligible based on patient's age to complete this topic MENINGOCOCCAL (MENACTRA/MENVEO) Aged Out No longer eligible based on patient's age to complete this topic documented as of this encounter Medical Devices Not on filedocumented as of this encounter Procedures Procedure Name Priority Date/Time Associated Diagnosis Comments PATHOLOGY SCANNED RESULT 01/11/2024 documented in this encounter Results * PATHOLOGY SCANNED RESULT (01/11/2024) 01/11/2024 Joi Fink MD PATHOLOGY Final Re sult documented in this encounter Care Teams Test Center Administrator Relationship Specialty Start Date End Date Joi Fink MD [address] [facility] [place] [address] PCP - General Internal Medicine 12/04/13 documented as of this encounter
--- OUTSIDE RECORDS SUMMARY | 2024-07-08 13:16 | External Medical Summary | Summary of Care ---
Author Name Unknown Organization [facility] Address [address] [place] [address] Phone [phone] Care Team Providers Care Ditch Tender Name Role Phone Joi Fink MD Primary Care Provider + Reason for Visit * Reason Comments Follow Up 6 month follow up Encounter Details Date Type Department Care Team (Late st Contact Info) Description 03/06/2024 2:00 PM EST Office Visit Otolaryngology [facility] [address] [place] [address] Miguel Lewis PA-C [address] [place] [address] Bilateral impacted cerumen* Allergies Active Allergy Reactions Criticality Noted Date Comments Adalimumab 03/26/2017 documented as of this encounter (statuses as of 03/06/2024) Medications BD Luer-Mario Syringe 25G X 5/8" [...] 24 Active Celecoxib 200 MG Oral Capsule (CeleBREX)Indica tions:Ankylosing spondylitis of multiple sites in spine (HCC) TAKE 1 CAPSULE BY MOUTH 2 TIMES A DAY NEEDED WITH MORNING AND EVENING MEALS 180 Capsule 3 12/16/19 24 Active documented as of this encounter (statuses as of 03/06/2024) Active Problems Problem Noted Date Diagnosed Date Encounter for long-term (current) use of medicat ions 11/12/2022 Ankylosing spondylitis of multiple sites in spin e 04/28/2019 Bipolar affective disorder, current episode hypo manic 04/28/2019 Immunocompromised patient 10/27/2018 Trismus 02/12/2017 Bipolar disorder Other vitamin B12 deficiency anemia documented as of this encounter (statuses as of 03/06/2024) Resolved Problems Problem Noted Date Diagnosed Date Resolved Date Ankylosing spondylitis 03/25/201711/12 Acute parotitis 02/12/2017 03/25/2017 ADVANCE DIRECTIVE INFORMATION 12/22/2005 12/08/2016 Overview (12/22/2005): No, Advance Directive brochure given to patient. Dyslipidemia, goal to be determined 03/14/2012 Major depressive disorder Overview (12/15/2016): ICD-10 update of inactive term Ankylosing spondylitis 08/01 documented as of this encounter (statuses as of 03/06/2024) Immunizations Name Administration Dates Next Due COVID-19, [...] Date Smoking Tobacco: Never Smokeless Tobacco: Never Tobacco Cessation:Counseling Given: Not Answered Alcohol Use Standard Drinks/Week Comments Yes 5 [...] on file documented as of this encounter Last Filed Vital Signs Vital Sign Reading Time Taken Comments Blood Pressure - - Pulse - - Temperature 35.7 °C (96.3 °F) 03/06/2024 2:01 PM ES T Respiratory Rate - - Oxygen Saturation - - Inhaled Oxygen Concentration - - Weight 76.2 kg (168 lb 1.6 oz) 03/06/2024 2:01 P M EST Height 182.9 cm (6') 03/06/2024 2:01 PM EST Body Mass Index 22.8 03/06/2024 2:01 PM EST documented in this encounter Progress Notes * Miguel Lewis PA-C - 03/06/2024 2:08 PM EST 03/06/24 Nursing Notes: Bishnu Chew, [facility] 03/06/24 1401 Signed Chief Complaint Patient presents with Follow Up 6 month follow up Obed Aster Aguilar is a 48 year old male who presents today for a 6 month follow up for bilateral impactedcerumen. He has been using mineral oil in both ears and it has helped. He states that his ears are doing well. HISTORY OF PRESENT ILLNESS This 48 year old YO male is seen for routine cerumen removal. Ears are doing well-- using mineral oil which has helped. Denies otalgia, otorrhea, hearing changes. From last visit: Chronic cerumen impaction. Associated symptoms include bilateral aural pressure. He denies bilateral hearing loss, bilateral otalgia, bilateral otorrhea, and bilateral tinnitis. PCP attempted to irrigate but were unsuccessful. Denies hx of otologic surgeries. No hx of recurrent OM. Remaining ear review of symptoms reveals: Head trauma: denied Dizziness: vertigo denied Noise exposure: no occupational exposure and no firearm exposure Problem List Patient Active Problem List Diagnosis Bipolar disorder ([facility]) Other vitamin B12 deficiency anemia Trismus Immunocompromised patient ([facility]) Ankylosing spondylitis of multiple sites in spine ([facility]) Bipolar affective disorder, current episode hypomanic ([facility]) Encounter for long-term (current) use of medications Past Medical History: Diagnosis Date Ankylosing spondylitis ([facility]) Bipolar disorder ([facility]) Depressive disorder, not elsewhere classified Dyslipidemia, goal LDL below 130 Other vitamin B12 deficiency anemia Past Surgical History: Procedure Laterality Date COLONOSCOPY, DIAGNOSTIC (RECTUM) 05/18/2018 biopsies show adenomatous polyps/recall 5 years/COLONOSCOPY FLEXIBLE PROXIMAL DIAGNOSTIC performed by Marga Mullins DO at ENDOSCOPY [facility] EGD, FLEXIBLE, DIAGNOSTIC 05/18/2018 normal/ESOPHAGOGASTRODUODENOSCOPY (EGD), FLEXIBLE, TRANSORAL, DIAGNOSTIC performed by Marga Mullins DO at ENDOSCOPY [facility] RPR ING STEFFANY PREMIE, BLOCKED Medications Current Outpatient Medications Medication Sig Dispense Refill [...] No current facility-administered medications for this visit. Allergies Review of patient's allergies indicates: Allergen Reactions Humira [Adalimumab] Family History Family History Problem Relation Name Age of Onset Diabetes Mother Ashley Aguilar Urolithiasis Mother Ashley Aguilar Heart Disorder Mother Ashley Aguilar Diabetes Thyroid Disorder Mother Ashley Aguilar Other (Ankylosing spondylitis) Father Stan Aguilar Heart Disorder Father Stan Aguilar Heart disease and diabetes Heart attack Father Stan Aguilar Diabetes Father Stan Aguilar Bipolar Disorder Father Stan Aguilar Hypertension Father Stan Aguilar No Known Problems Grandfather (Maternal) Social History Social History Tobacco Use Smoking status: Never Smokeless tobacco: Never Substance Use Topics Alcohol use: Yes Alcohol/week: 5.0 standard drinks of alcohol Types: 5 12 oz of beer per week Comment: occasional Vaping/E-Cigarette Use Vaping/E-Cigarette Use Never User Passive Exposure No Counseling Given? No Vaping/E-Cigarette Substances Nicotine No Other No Flavoring No THC No Cannabidiol (CBD) No Vaping/E-Cigarette Devices Disposable No Pre-filled or Refillable Cartridge No Refillable Tank No Pre-filled Pod No REVIEW OF SYMPTOMS: Negative for constitutional, eyes, cardiac, pulmonary, hepatic, renal, digestive, hematologic, epileptic, syncopal, musculo-skeletal, mental health, integumentary, hypertensive, lipid, arthritic, diabetic, thyroid, or neurologic disorders (except as listed in the PMH and Problem List). PHYSICAL EXAMINATION: Vital Signs: Filed Vitals: 03/06/24 1401 Temp: 35.7 °C (96.3 °F) TempSrc: Tympanic Weight: 76.2 kg (168 lb 1.6 oz) Height: 1.829 m (6') General: this is a healthy appearing male who appears his stated age. The patient is alert and appropriately verbally conversant without hoarseness. Face: The face was inspected and no cutaneous masses or lesions were visualized. There was no erythema or edema noted. Lungs: normal respiratory effort Heart: normal rate IN ORDER TO BETTER EXAMINE THE EARS, THE PATIENT WAS EXAMINED USING THE OPERATING MICROSCOPE. FINDINGS ARE NOTED BELOW. Ears: Examination of the ears revealed that the auricles were normally formed with no lesions. The right external auditory canal was impacted with cerumen. It was removed using suction and forceps atraumatically by me. The right TM was WNL. The right middle ear space was WNL. The left external auditory canal was impacted with cerumen. It was removed using suction and forceps atraumatically by me. The left TM was WNL. The left middle ear space was WNL ASSESSMENT: 1. Bilateral impacted cerumen Plan: Cerumen removed. Return in 6 mo for cerumen removal, sooner PRN. Pt verbalized understanding and agrees with plan. Questions/Concerns addressed. Miguel Lewis PA-C [facility] [address] [place] [address] 03/06/24 documented in this encounter Nursing Notes * Bishnu Chew CMA - 03/06/2024 1:59 PM EST Chief Complaint Patient presents with Follow Up 6 month follow up Obed Aguilar is a 48 year old male who presents today for a 6 month follow up for bilateral impactedcerumen. He has been using mineral oil in both ears and it has helped. He states that his ears are doing well. documented in this encounter Plan of Treatment Upcoming Encounters Date Type Department Care Team (Late st Contact Info) Description 04/05/2024 12:30 PM EST Telemedicine Psychiatry, [address] [place] [address] Jessy Booker MD [address] [place] [phone] 09/06/2024 2:30 PM EDT Office Visit Otolaryngology [address] [place] [address] Miguel Lewis PA-C [address] [place] [address] 11/09/2024 1:00 PM EDT Office Visit General Internal Medicine [facility] [address] [place] [address] Joi Fink MD [address] [facility] [place] [address] 11/22/2024 3:00 PM EDT Office Visit Rheumatology [facility] [address] [place] [phone] Rohini Bettencourt CRNP [address] [place] [address] [employer] [place], [place] [address] Scheduled Procedures Name Priority Associated Diagnoses Date/Ti [...] PCV21) 10/28/2023 10/27/2018, 04/26/2018 Colorectal Cancer Screening 12/06/2023 Cologuard 12/04/2026 12/05/2023, 12/05/2023 DTap/Tdap Vaccines (3 - Td or [...] as of this encounter Visit Diagnoses Diagnosis Bilateral impacted cerumen- Primary Impacted cerumen documented in this encounter Care Teams Ditch Tender Relationship Specialty Start Date End Date Joi Fink MD [address] [place] [id number] PCP - General Internal Medicine 12/04/13 documented as of this encounter
--- NOTE | 2024-07-08 13:38 | Emergency Department Note ---
ED Provider Note History of Present Illness Chief Complaint: Abdominal Pain Stated Complaint: SEVERE ABD PAIN Time Seen by Provider: 07/08/24 13:16 48-year-old male who presents the emergency department with complaint of severe lower central abdominal pain. The patient reports that the pain awakened him this morning around 4 AM. He reports that the pain has persisted and slightly worsened throughout the day. The patient thought that it was constipation, and did take some Colace and Pepto-Bismol without any relief. The patient has not noticed any recent abnormal bowel movements, or darkened/bloody urine. He denies prior history of kidney stones. The patient has had prior normal colonoscopy studies. He denies any pain radiating into the back. He did initially have nausea upon awakening this morning, but that has since resolved. He denies any alleviating or aggravating factors for the pain, and rates his discomfort an 8 out of 10. Home Medications Medication Instructions Recorded Confirmed Type atorvastatin 20 mg tablet 20 mg PO DAILY 07/08/24 07/08/24 History celecoxib 200 mg capsule 200 mg PO BIDM PRN Pain 07/08/24 07/08/24 History cyanocobalamin (vitamin B-12) 1,000 mcg IM MONTHLY 07/08/24 07/08/24 History 1,000 mcg/mL injection solution lamotrigine 200 mg tablet 100 mg PO QAM 07/08/24 07/08/24 History lamotrigine 200 mg tablet 200 mg PO HS 07/08/24 07/08/24 History lisinopril 5 mg tablet 5 mg PO DAILY 07/08/24 07/08/24 History secukinumab 150 mg/mL subcutaneous 150 mg subcut UD 07/08/24 07/08/24 History pen injector (Cosentyx Pen 300 mg/2 pens () Allergies Allergy/AdvReac Type Severity Reaction Status Date / Time No Known Allergies Allergy Unverified 02/03/17 17:26 Past Med/Surg History Problem List Acute appendicitis (Acute) Anterior neck pain (Acute) Jaw pain (Acute) Sorethroat (Acute) Medical History Hypertension Ankylosing spondylitis Surgical History History of colonoscopy Social History Smoking Status: Never smoker Preferred Language: Citizen Of [place] marital status: current occupational status: employed Feels Safe at Home: Yes Physical Exam Vital Signs Vital Signs - 24 hr 07/08/24 13:13 07/08/24 14:13 07/08/24 14:31 Temperature 36.8 C Temperature Source Temporal Artery Scan Pulse Rate 55 L 53 L Pulse Rate [Apical] 50 L Respiratory Rate 18 17 Respiratory Effort / Characteristics Non-Labored Spontaneous Non-Labored Spontaneous Respiratory Depth Normal Normal Respiratory Pattern Regular Blood Pressure 148/96 H Blood Pressure [Right Arm] 142/85 H Blood Pressure Mean 113 Blood Pressure Mean [Right Arm] 104 Blood Pressure Position Sitting Blood Pressure Position [Right Arm] Semi-fowlers Pulse Oximetry 96 98 Oxygen Delivery Method Room Air Room Air Sepsis Recent Fever Within 48 Hours No Sepsis New/Unexplained Change in Mental Status N/A Sepsis Action Taken by Nursing No Action Required 07/08/24 15:00 Temperature Temperature Source Pulse Rate 53 L Pulse Rate [Apical] Respiratory Rate 18 Respiratory Effort / Characteristics Respiratory Depth Respiratory Pattern Blood Pressure 147/99 H Blood Pressure [Right Arm] Blood Pressure Mean 121 Blood Pressure Mean [Right Arm] Blood Pressure Position Blood Pressure Position [Right Arm] Pulse Oximetry 100 Oxygen Delivery Method Room Air Sepsis Recent Fever Within 48 Hours Sepsis New/Unexplained Change in Mental Status Sepsis Action Taken by Nursing CONSTITUTIONAL: Healthy and well nourished. Alert and oriented X 3. GCS 15. Patient appears in mild discomfort. HEENT: No scleral icterus or conjunctival injection. Mucous membranes are moist. RESPIRATORY: Clear to auscultation bilaterally with no wheezing, crackles, rhonchi or stridor. CARDIOVASCULAR: Regular rate and rhythm with no murmurs, rubs or gallops. GASTROINTESTINAL: Bowel sounds present in all quadrants. Patient has mild suprapubic tenderness to palpation. No CVA tenderness, McBurney's point tenderness or Rovsing sign. No bruits on auscultation, and no pulsatile masses on palpation. MUSCULOSKELETAL: Full range of motion of all joints without discomfort. INTEGUMENTARY: No rash or other significant dermatologic conditions noted. HEMATOLOGIC: No ecchymosis or petechiae. PSYCHIATRIC: Positive affect. NEUROLOGIC: No focal neurologic deficits noted. Course Course Patient history and physical exam were performed. Nursing notes were reviewed. Vital signs were reviewed, showing an elevated blood pressure. The patient is also mildly bradycardic. IV access was established, and labs were ordered and drawn. The patient was administered IV Toradol for pain, refusing any stronger analgesics, antiemetics or IV hydration. Review of labs shows a relatively normal CBC, CMP and lipase. Urinalysis does not show evidence for hematuria or signs of infection. Noncontrast CT imaging of the abdomen and pelvis shows an acute appendicitis. Findings were discussed with the patient, as well as Dr. Martin, ED attending physician, Case Management, as well as Dr. Stanley, general surgeon on-call. Dr. Stanley will be taking the patient to the OR for further surgical management. He did request that I start the patient on IV Zosyn, and this was ordered. The patient was also administered IV morphine and Zofran for better pain control. Please see Dr. Stanley's dictation for further treatment and final disposition. Prior to transfer of care to Dr. Stanley, the patient did require additional IV Dilaudid for pain control. Administered Medications Discontinued Medications Piperacillin Sod/Tazobactam Sod (Zosyn) 4.5 gm in 100 mls @ 200 mls/hr IV NOW ONE; Protocol Stop: 07/08/24 15:36 Last Infusion: 07/08/24 15:50 Dose: Infused Documented By: Admin: 07/08/24 15:16 Dose: 200 mls/hr Documented By: DIANNE Ketorolac Tromethamine (Ketorolac Tromethamine 15 Mg/Ml Vial) 10 mg IV NOW STA Stop: 07/08/24 13:27 Last Admin: 07/08/24 13:55 Dose: 10 mg Documented By: JESSICA Morphine Sulfate (Morphine Sulfate 2 Mg/Ml Carp) 2 mg IV NOW STA Stop: 07/08/24 15:04 Last Admin: 07/08/24 15:16 Dose: 2 mg Documented By: DIANNE Ondansetron HCl (Ondansetron Inj 2 Mg/Ml 2 Ml Vial) 4 mg IV NOW STA Stop: 07/08/24 15:04 Last Admin: 07/08/24 15:16 Dose: 4 mg Documented By: DIANNE Medical Decision Making Medical Records Attestation: I reviewed the patient's medical records. Home Medications was personally reviewed by wy Laboratory Data Attestation: I reviewed the patient's lab results. 07/08/24 13:58 07/08/24 13:58 Lab Results 07/08/24 Range/Units 13:58 WBC 10.63 (4.8-10.8) K/ul RBC 4.73 (4.70-6.10) M/uL Hgb 14.8 (14.0-18.0) g/dl Hct 43.5 (42.0-52.0) % MCV 92.0 (80.0-100.0) fL MCH 31.3 (25.0-34.0) pg MCHC 34.0 (32.0-36.0) g/dL RDW Std Deviation 43.3 (36.4-46.3) fL RDW Coeff of Rosemary 13.1 (11.5-14.5) % Plt Count 167 (130-400) K/uL MPV 9.5 (9.4-12.4) fL Immature Gran % (Auto) 0.3 % Neut % (Auto) 82.3 % Lymph % (Auto) 10.7 % [place] % (Auto) 5.9 % Eos % (Auto) 0.6 % Baso % (Auto) 0.2 % Neut # (Auto) 8.75 H (1.40-6.50) K/uL Lymph # (Auto) 1.14 L (1.20-3.40) K/uL [place] # (Auto) 0.63 H (0.11-0.59) K/uL Eos # (Auto) 0.06 (0.00-0.50) K/uL Baso # (Auto) 0.02 (0.00-0.20) K/uL Immature Gran # (Auto) 0.03 (0.01-0.20) K/uL Sodium 140 (136-145) mmol/L Potassium 3.7 (3.5-5.1) mmol/L Chloride 102 (98-107) mmol/L Carbon Dioxide 32 (21-32) mmol/L Anion Gap 6 (3-11) BUN 9 (6-23) mg/dl Creatinine 1.02 (0.6-1.4) mg/dl Est Cr Clr Drug Dosing 92.2 ml/min eGFR 89.54 BUN/Creatinine Ratio 8.8 L (10-20) Glucose 116 H (70-99(Fasting)) mg/dl Calcium 9.5 (8.6-10.3) mg/dl Total Bilirubin 0.6 (0.2-1.0) mg/dl AST 14 (13-39) U/L ALT 24 (7-52) U/L Alkaline Phosphatase 81 (34-104) U/L Total Protein 7.7 (6.0-8.3) gm/dl Albumin 4.9 (3.4-5.0) gm/dl Globulin 2.8 (2.5-4.0) gm/dl Albumin/Globulin Ratio 1.8 (0.9-2) Lipase 16 (11-82) U/L Urine Color Yellow Urine Appearance Clear (Clear) Urine pH 7.0 (4.5-7.5) Ur Specific Grawn 1.020 (1.000-1.030) Urine Protein Negative (Negative) Urine Glucose (UA) Negative (Negative) Urine Ketones Negative (Negative) Urine Blood Negative (Negative) Urine Nitrite Negative (Negative) Urine Bilirubin Negative (Negative) Urine Urobilinogen Negative (Negative) Ur Leukocyte Esterase Negative (Negative) Urine Comment Imaging Data Attestation: I personally reviewed and interpreted this imaging study as follows: My Impression: My interpretation of a noncontrast CT scan of the abdomen and pelvis shows evidence for an acute appendicitis without perforation or abscess formation. Further details are discussed and the following radiologist report, which was also reviewed with concurrence. Radiologist's Impression: Abdomen/Pelvis CT 07/08/24 13:26 EXAMINATION: CT of the abdomen and pelvis performed without contrast TECHNIQUE: Helical CT images from the lung bases through the symphysis pubis were obtained without contrast. Coronal and sagittal reformatted images were generated at a workstation for further assessment. Dose reduction techniques were achieved by using automatic exposure control and/or adjustment of mA and/or kV according to patient size and/or use of iterative reconstruction technique. COMPARISON: None HISTORY: Abdominal pain FINDINGS: Lower chest: No consolidation. No pleural effusion or pneumothorax. Liver: No suspicious liver lesions. Gallbladder: No gallstones. No evidence of acute cholecystitis. Spleen: Normal size. Pancreas: No suspicious pancreatic lesions. The pancreatic duct is not dilated. Adrenal glands: No adrenal nodules. Kidneys: No hydronephrosis or obstructing renal stones. Small right renal cyst. Bladder / Pelvic organs: Unremarkable. Bowel: No bowel obstruction. No abnormal bowel wall thickening. The appendix is dilated measuring 14 mm in diameter. Subtle surrounding inflammatory fat stranding seen. There are scattered appendicoliths, including a prominent appendicolith at the base of the appendix measuring 9 mm. No abscess or free air.. Lymph nodes: No retroperitoneal, mesenteric, or pelvic lymphadenopathy. Peritoneum / Retroperitoneum: No free fluid or air within the abdomen. Vessels: No infrarenal aortic aneurysm. Bones and soft tissues: No suspicious lesion in the bones. IMPRESSION: Acute uncomplicated appendicitis. The appendix is dilated measuring 14 mm in diameter. Subtle surrounding inflammatory fat stranding seen. There are scattered appendicoliths, including a prominent appendicolith at the base of the appendix measuring 9 mm. No abscess or free air.. Electronically signed by Jay Jay Guillermo 07-08-2024 2:50 PM MDM Narrative See ED Course section for further details of today's visit. Patient presents for evaluation of suprapubic abdominal discomfort that awakened him this morning. His examination does not show evidence for McBurney's point tenderness or Rovsing sign, however the patient does have CT findings consistent with an acute appendicitis. The patient is afebrile and does not have vital signs consistent with sepsis. The patient was administered IV Zosyn, and the patient will be going to the OR for further surgical management by Dr. Stanley. Patient was in agreement with this plan. Impression Acute appendicitis Discharge Plan Visit Data Chief Complaint: Abdominal Pain Stated Complaint: SEVERE ABD PAIN ED Provider: Justin Martin ED Midlevel Provider: Franky Blanco Discharge Problem: Acute appendicitis Patient Disposition: Admitted As Inpatient Condition: Fair Forms Stand Alone Forms: My [facility] [employer] Prescriptions Prescriptions: No Action cyanocobalamin (vitamin B-12) 1,000 mcg/mL solution 1,000 mcg IM MONTHLY Rx Instructions: give every 30 days Cosentyx Pen (2 Pens) 150 mg/mL pen injector 150 mg SUBCUT UD celecoxib 200 mg capsule 200 mg PO BIDM PRN (Reason: Pain) atorvastatin 20 mg tablet 20 mg PO DAILY lamotrigine 200 mg tablet 100 mg PO QAM lamotrigine 200 mg tablet 200 mg PO HS lisinopril 5 mg tablet 5 mg PO DAILY Referrals Referrals: Joi Fink MD [Primary Care Provider] - ED DC CONDITION Conditon at Discharge Condition at Discharge: Fair
[2024-07-08] MEDS: KETOROLAC TROMETHAMINE 15 MG/ML VIAL IV STA (13:55)
[2024-07-08 14:12] LABS: Basophils # (auto) 0.02 K/uL (0.00-0.20); Basophils % (auto) 0.2 %; Eosinophils # (auto) 0.06 K/uL (0.00-0.50); Eosinophils % (auto) 0.6 %; Hematocrit (blood only) 43.5 % (42.0-52.0); Hemoglobin 14.8 g/dl (14.0-18.0); Immature Granulocytes # (auto) 0.03 K/uL (0.01-0.20); Immature Granulocytes % (auto) 0.3 %; Lymphocytes # (auto) 1.14 K/uL (1.20-3.40); Lymphocytes % (auto) 10.7 %; Mean Corpuscular Hemoglobin 31.3 pg (25.0-34.0); Mean Platelet Volume 9.5 fL (9.4-12.4); Monocytes # (auto) 0.63 K/uL (0.11-0.59); Monocytes % (auto) 5.9 %; Neutrophils # (auto) 8.75 K/uL (1.40-6.50); Neutrophils % (auto) 82.3 %; Platelet Count 167 K/uL (130-400); RDW Coefficient of Variation 13.1 % (11.5-14.5); RDW Standard Deviation 43.3 fL (36.4-46.3); Red Blood Count 4.73 M/uL (4.70-6.10); White Blood Count 10.63 K/ul (4.8-10.8)
[2024-07-08 14:19] LABS: Appearance Urine Clear (Clear); Bilirubin Urine Negative (Negative); Blood Urine Negative (Negative); Color Urine Yellow; Glucose Urine UA Negative (Negative); Ketones Urine Negative (Negative); Leukocyte Esterase Urine Negative (Negative); Nitrite Urine Negative (Negative); Protein Urine Negative (Negative); Urobilinogen Urine Negative (Negative)
[2024-07-08 14:30] LABS: Albumin Globulin Ratio 1.8 (0.9-2); Albumin Level 4.9 gm/dl (3.4-5.0); BUN Creatinine Ratio 8.8 (10-20); Bilirubin,Total 0.6 mg/dl (0.2-1.0); Calcium 9.5 mg/dl (8.6-10.3); Creatinine Clr Calc Pharmacy 92.2 ml/min; Globulin 2.8 gm/dl (2.5-4.0); Potassium 3.7 mmol/L (3.5-5.1); Total Protein 7.7 gm/dl (6.0-8.3)
--- NOTE | 2024-07-08 14:50 | CT Scan Report ---
EXAMINATION: CT of the abdomen and pelvis performed without contrast TECHNIQUE: Helical CT images from the lung bases through the symphysis pubis were obtained without contrast. Coronal and sagittal reformatted images were generated at a workstation for further assessment. Dose reduction techniques were achieved by using automatic exposure control and/or adjustment of mA and/or kV according to patient size and/or use of iterative reconstruction technique. COMPARISON: None HISTORY: Abdominal pain FINDINGS: Lower chest: No consolidation. No pleural effusion or pneumothorax. Liver: No suspicious liver lesions. Gallbladder: No gallstones. No evidence of acute cholecystitis. Spleen: Normal size. Pancreas: No suspicious pancreatic lesions. The pancreatic duct is not dilated. Adrenal glands: No adrenal nodules. Kidneys: No hydronephrosis or obstructing renal stones. Small right renal cyst. Bladder / Pelvic organs: Unremarkable. Bowel: No bowel obstruction. No abnormal bowel wall thickening. The appendix is dilated measuring 14 mm in diameter. Subtle surrounding inflammatory fat stranding seen. There are scattered appendicoliths, including a prominent appendicolith at the base of the appendix measuring 9 mm. No abscess or free air.. Lymph nodes: No retroperitoneal, mesenteric, or pelvic lymphadenopathy. Peritoneum / Retroperitoneum: No free fluid or air within the abdomen. Vessels: No infrarenal aortic aneurysm. Bones and soft tissues: No suspicious lesion in the bones. IMPRESSION: Acute uncomplicated appendicitis. The appendix is dilated measuring 14 mm in diameter. Subtle surrounding inflammatory fat stranding seen. There are scattered appendicoliths, including a prominent appendicolith at the base of the appendix measuring 9 mm. No abscess or free air.. Electronically signed by Jay Jay Guillermo 07-08-2024 2:50 PM
[2024-07-08] MEDS: MoRPHine SULFATE 2 MG/ML CARP IV STA (15:16)
[2024-07-08] MEDS: ONDANSETRON INJ 2 MG/ML 2 ML VIAL IV STA (15:16)
[2024-07-08] MEDS: PIPERACILLIN/TAZOBACTAM 4.5 GM/100 ML BAG IV ONE (15:16)
--- NOTE | 2024-07-08 16:10 | History & Physical Report ---
Date of Service July 08, 2024 Assessment & Plan (1) Acute appendicitis: Plan: 48-year-old gentleman presents with acute appendicitis. We discussed the risks and benefits of laparoscopic appendectomy. All his questions were answered and his agreeable to proceed. Will taken to the operating room at the earliest convenience. History of Present Illness Primary Care Provider: Joi Fink MD 48-year-old gentleman presents with a 12-hour history of severe abdominal pain worsening over the course of the day. He has had nausea but no vomiting. He last ate yesterday. He has no appetite. He denies fevers or chills. He denies other complaints. CT scan demonstrates acute appendicitis with multiple appendicoliths in the appendix. Allergies Allergy/AdvReac Type Severity Reaction Status Date / Time No Known Allergies Allergy Unverified 02/03/17 17:26 Home Medications Medication Instructions Recorded Confirmed Type atorvastatin 20 mg tablet 20 mg PO DAILY 07/08/24 07/08/24 History celecoxib 200 mg capsule 200 mg PO BIDM PRN Pain 07/08/24 07/08/24 History cyanocobalamin (vitamin B-12) 1,000 mcg IM MONTHLY 07/08/24 07/08/24 History 1,000 mcg/mL injection solution lamotrigine 200 mg tablet 100 mg PO QAM 07/08/24 07/08/24 History lamotrigine 200 mg tablet 200 mg PO HS 07/08/24 07/08/24 History lisinopril 5 mg tablet 5 mg PO DAILY 07/08/24 07/08/24 History secukinumab 150 mg/mL subcutaneous 150 mg subcut UD 07/08/24 07/08/24 History pen injector (Cosentyx Pen 300 mg/2 pens () Past Med/Surg History Problem List Acute appendicitis (Acute) Anterior neck pain (Acute) Jaw pain (Acute) Sorethroat (Acute) Medical History Hypertension Ankylosing spondylitis Surgical History History of colonoscopy Social History Smoking Status: Never smoker Preferred Language: Indonesian marital status: current occupational status: employed Feels Safe at Home: Yes Review of Systems Review of Systems: All systems reviewed & are unremarkable except as noted in HPI & below Physical Exam Constitutional: WD/WN, vitals as above Eyes: PERRL, conjunctivae normal, anicteric sclerae Neck: trachea midline, no thyromegaly Respiratory: normal respiratory effort; no respiratory distress and no labored breathing Cardiovascular: Rate/Rhythm: regular rate and regular rhythm Gastrointestinal (Abdomen): Inspection/Auscultation: abdomen normal to inspection; abdomen not distended Percussion/Palpation: + abdomen tender ( Diffusely) and abdomen soft; no guarding and abdomen not rigid Skin: no rashes, warm and dry Psychiatric: A+Ox3, euthymic affect Results & Data Results & Data Vital Signs (Past 12 Hours) Vital Signs Temp Pulse Pulse Resp BP BP Pulse Ox 07/08/24 15:00 53 L 18 147/99 H 100 07/08/24 14:31 50 L 17 142/85 H 98 07/08/24 14:13 53 L 07/08/24 13:13 36.8 C 55 L 18 148/96 H 96 O2 Del Method 07/08/24 15:00 Room Air 07/08/24 14:31 Room Air 07/08/24 14:13 07/08/24 13:13 Room Air Laboratory Results 07/08/24 Range/Units 13:58 WBC 10.63 (4.8-10.8) K/ul RBC 4.73 (4.70-6.10) M/uL Hgb 14.8 (14.0-18.0) g/dl Hct 43.5 (42.0-52.0) % MCV 92.0 (80.0-100.0) fL MCH 31.3 (25.0-34.0) pg MCHC 34.0 (32.0-36.0) g/dL RDW Std Deviation 43.3 (36.4-46.3) fL RDW Coeff of Rosemary 13.1 (11.5-14.5) % Plt Count 167 (130-400) K/uL MPV 9.5 (9.4-12.4) fL Immature Gran % (Auto) 0.3 % Neut % (Auto) 82.3 % Lymph % (Auto) 10.7 % [place] % (Auto) 5.9 % Eos % (Auto) 0.6 % Baso % (Auto) 0.2 % Neut # (Auto) 8.75 H (1.40-6.50) K/uL Lymph # (Auto) 1.14 L (1.20-3.40) K/uL [place] # (Auto) 0.63 H (0.11-0.59) K/uL Eos # (Auto) 0.06 (0.00-0.50) K/uL Baso # (Auto) 0.02 (0.00-0.20) K/uL Immature Gran # (Auto) 0.03 (0.01-0.20) K/uL Sodium 140 (136-145) mmol/L Potassium 3.7 (3.5-5.1) mmol/L Chloride 102 (98-107) mmol/L Carbon Dioxide 32 (21-32) mmol/L Anion Gap 6 (3-11) BUN 9 (6-23) mg/dl Creatinine 1.02 (0.6-1.4) mg/dl Est Cr Clr Drug Dosing 92.2 ml/min eGFR 89.54 BUN/Creatinine Ratio 8.8 L (10-20) Glucose 116 H (70-99(Fasting)) mg/dl Calcium 9.5 (8.6-10.3) mg/dl Total Bilirubin 0.6 (0.2-1.0) mg/dl AST 14 (13-39) U/L ALT 24 (7-52) U/L Alkaline Phosphatase 81 (34-104) U/L Total Protein 7.7 (6.0-8.3) gm/dl Albumin 4.9 (3.4-5.0) gm/dl Globulin 2.8 (2.5-4.0) gm/dl Albumin/Globulin Ratio 1.8 (0.9-2) Lipase 16 (11-82) U/L Urine Color Yellow Urine Appearance Clear (Clear) Urine pH 7.0 (4.5-7.5) Ur Specific [place] 1.020 (1.000-1.030) Urine Protein Negative (Negative) Urine Glucose (UA) Negative (Negative) Urine Ketones Negative (Negative) Urine Blood Negative (Negative) Urine Nitrite Negative (Negative) Urine Bilirubin Negative (Negative) Urine Urobilinogen Negative (Negative) Ur Leukocyte Esterase Negative (Negative) Urine Comment Diagnostic Findings EXAMINATION: CT of the abdomen and pelvis performed without contrast TECHNIQUE: Helical CT images from the lung bases through the symphysis pubis were obtained without contrast. Coronal and sagittal reformatted images were generated at a workstation for further assessment. Dose reduction techniques were achieved by using automatic exposure control and/or adjustment of mA and/or kV according to patient size and/or use of iterative reconstruction technique. COMPARISON: None HISTORY: Abdominal pain FINDINGS: Lower chest: No consolidation. No pleural effusion or pneumothorax. Liver: No suspicious liver lesions. Gallbladder: No gallstones. No evidence of acute cholecystitis. Spleen: Normal size. Pancreas: No suspicious pancreatic lesions. The pancreatic duct is not dilated. Adrenal glands: No adrenal nodules. Kidneys: No hydronephrosis or obstructing renal stones. Small right renal cyst. Bladder / Pelvic organs: Unremarkable. Bowel: No bowel obstruction. No abnormal bowel wall thickening. The appendix is dilated measuring 14 mm in diameter. Subtle surrounding inflammatory fat stranding seen. There are scattered appendicoliths, including a prominent appendicolith at the base of the appendix measuring 9 mm. No abscess or free air.. Lymph nodes: No retroperitoneal, mesenteric, or pelvic lymphadenopathy. Peritoneum / Retroperitoneum: No free fluid or air within the abdomen. Vessels: No infrarenal aortic aneurysm. Bones and soft tissues: No suspicious lesion in the bones. IMPRESSION: Acute uncomplicated appendicitis. The appendix is dilated measuring 14 mm in diameter. Subtle surrounding inflammatory fat stranding seen. There are scattered appendicoliths, including a prominent appendicolith at the base of the appendix measuring 9 mm. No abscess or free air.. Electronically signed by Jay Jay Guillermo 07-08-2024 2:50 PM Dictated: 07/08/24 [id number] Transcribed: (1) Acute appendicitis Acute appendicitis type: unspecified acute appendicitis type Qualified Code(s): K35.80 - Unspecified acute appendicitis
[2024-07-08] MEDS ORDERED: DEXAMETHASONE SOD INJ 4 MG/ML VIAL ONE (16:27)
[2024-07-08] MEDS ORDERED: PROPOFOL IV EMULSION 10 MG/ML 20 ML VIAL IV ONE (16:27)
[2024-07-08] MEDS ORDERED: ONDANSETRON INJ 2 MG/ML 2 ML VIAL ONE (16:27)
[2024-07-08] MEDS ORDERED: LIDOCAINE 2% 2 ML VIAL/AMP(20MG/ML) INFIL ONE (16:27)
[2024-07-08] MEDS ORDERED: ROCURONIUM BROMIDE 10 MG/ML 5 ML VIAL IV ONE (16:27)
[2024-07-08] MEDS ORDERED: SUCCINYLCHOLINE CHLORIDE 20 MG/ML 10 ML VIAL IV ONE (16:27)
[2024-07-08] MEDS ORDERED: fentaNYL citrate PF 100 MCG/2 ML VIAL ONE (16:28)
[2024-07-08] MEDS ORDERED: MIDAZOLAM HCL 1 MG/ML 2ML VIAL ONE (16:28)
[2024-07-08] MEDS: HYDROmorphone INJ 0.5 MG/0.5 ML SYR IV STA (16:34)
[2024-07-08] MEDS ORDERED: ATROPINE SULFATE 0.1 MG/ML 10ML SYR IV PRN (16:42)
[2024-07-08] MEDS ORDERED: ONDANSETRON INJ 2 MG/ML 2 ML VIAL IV PRN ×2 (16:42→19:53)
[2024-07-08] MEDS ORDERED: MoRPHine SULFATE 10 MG/ML CARP/VIAL IV PRN (16:42)
[2024-07-08] MEDS ORDERED: DEXAMETHASONE SOD INJ 4 MG/ML VIAL IV PRN (16:42)
[2024-07-08] MEDS ORDERED: fentaNYL citrate PF 100 MCG/2 ML VIAL IV PRN (16:42)
[2024-07-08] MEDS ORDERED: ePHEDrine sulfate 50 MG/ML AMP IV PRN (16:42)
[2024-07-08] MEDS ORDERED: PROMETHAZINE HCL 6.25 MG in SODIUM CHLORIDE 0.9% 50 ML IV PRN (16:42)
[2024-07-08] MEDS ORDERED: MEPERIDINE HCL 25 MG/ML CARP/VIAL IV PRN (16:42)
--- NOTE | 2024-07-08 16:42 | Anesthesiology Consultation ---
Date of Service July 08, 2024 Assessment & Plan (1) Acute appendicitis: Chart Review Chart Review: Acceptable Risk for Surgery Consults Requested none ASA [id number] Proposed Anesthesia Anesthesia Type: General (RSI) Risk / Benefits Reviewed With: PT / POA / Parent / Guardian, Accepts Plan and Informed Consent Obtained History Surgery Operation Date: 07/08/24 17:00 Proposed Procedures p Laparoscopic Appendectomy - Jason Stanley MD Height/Weight Height: 6 ft Weight: 75.2 kg Allergies Allergy/AdvReac Type Severity Reaction Status Date / Time No Known Allergies Allergy Unverified 02/03/17 17:26 Medications Home Medications Medication Instructions Recorded Confirmed Last Taken atorvastatin 20 mg tablet 20 mg PO DAILY 07/08/24 07/08/24 Unknown celecoxib 200 mg capsule 200 mg PO BIDM PRN Pain 07/08/24 07/08/24 Unknown cyanocobalamin (vitamin B-12) 1,000 mcg IM MONTHLY 07/08/24 07/08/24 Unknown 1,000 mcg/mL injection solution lamotrigine 200 mg tablet 100 mg PO QAM 07/08/24 07/08/24 Unknown lamotrigine 200 mg tablet 200 mg PO HS 07/08/24 07/08/24 Unknown lisinopril 5 mg tablet 5 mg PO DAILY 07/08/24 07/08/24 Unknown secukinumab 150 mg/mL subcutaneous 150 mg subcut UD 07/08/24 07/08/24 Unknown pen injector (Cosentyx Pen 300 mg/2 pens () NPO Date Last Intake of Fluids: 07/08/24 Time Last Intake of Fluids: 11:00 Date Last Intake of Solids: 07/07/24 Time Last Intake of Solids: 23:00 Past Medical History Medical History (Updated 07/08/24 @ 16:41 by Cristina Ocasio DO) HLD (hyperlipidemia) Hypertension Ankylosing spondylitis Exercise / Class Metabolic Activity II 4-5 Yardwork/Stairs/Walk up hill Past Surgical History Surgical History (Updated 07/08/24 @ 17:28 by Cristina Ocasio DO) History of urologic surgery Urethra dilation as child Hx of wisdom tooth extraction History of surgery on arm Hx of hernia repair History of colonoscopy Past Anesthesia History No Hx of Anesthesia Complications and No Family Hx of Anesthesia Complications History of PONV No Hx of PONV and No Hx of Motion Sickness Social History Smoking Status: Never smoker Physical Exam Vital Signs Last Vital Signs Temp 36.8 C 07/08/24 13:13 Pulse 50 L 07/08/24 16:30 Resp 18 07/08/24 16:30 BP 157/92 H 07/08/24 16:30 Pulse Ox 98 07/08/24 16:30 O2 Del Method Room Air 07/08/24 16:48 ENMT Mouth: no TMJ abnormality Thyromental Distance: > or= 3.5 Finger Breadths Mallampati Class: II Neck normal visual inspection and trachea midline; neck extension not limited Respiratory normal respiratory effort Auscultation: lungs clear to auscultation bilaterally Cardiovascular Rate/Rhythm: regular rate and regular rhythm Heart Sounds: no murmur Musculoskeletal Spine: normal cervical ROM Extremities: full ROM of extremities Neurologic moves all extremities Psychiatric Orientation: alert and oriented x 3 Testing Laboratory Results 07/08/24 13:58 07/08/24 13:58 Urine Color Yellow 07/08/24 13:58 Urine Appearance Clear (Clear) 07/08/24 13:58 Urine pH 7.0 (4.5-7.5) 07/08/24 13:58 Ur Specific [place] 1.020 (1.000-1.030) 07/08/24 13:58 Urine Protein Negative (Negative) 07/08/24 13:58 Urine Glucose (UA) Negative (Negative) 07/08/24 13:58 Urine Ketones Negative (Negative) 07/08/24 13:58 Urine Nitrite Negative (Negative) 07/08/24 13:58 Ur Leukocyte Esterase Negative (Negative) 07/08/24 13:58 Electrocardiogram Date: 07/08/24 Findings: + SB @ (48bpm) (1) Acute appendicitis Acute appendicitis type: unspecified acute appendicitis type Qualified Code(s): K35.80 - Unspecified acute appendicitis
[2024-07-08] MEDS ORDERED: ePHEDrine sulfate 50 MG/5 ML SYR ONE (17:53)
[2024-07-08] MEDS ORDERED: GLYCOPYRROLATE 0.2 MG/ML VIAL ONE (18:03)
[2024-07-08] MEDS ORDERED: NEOSTIGMINE METHYLSULFATE 1 MG/ML 10ML VIAL ONE (18:03)
[2024-07-08] MEDS ORDERED: SUGAMMADEX SODIUM 200 MG/2 ML VIAL IV ONE ×2 (18:06→18:09)
[2024-07-08] MEDS: BUPIVACAINE/EPINEPHRINE 0.5% MPF 1:200,000 30 ML VIAL ONE (18:08)
--- NOTE | 2024-07-08 18:17 | Operative Report ---
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 A timeout was performed, perioperative antibiotics were administered, SCD boots were placed. After adequate anesthesia and analgesia was obtained, the abdomen was prepped and draped in the normal sterile fashion. A 1 cm incision was made in the supraumbilical region and carried down to the level of the fascia. A trach hook was used to grasp the fascia and elevated and a varies needle was used to enter the abdominal cavity. The abdomen was insufflated to a pressure of 15 mmHg, and a 5 mm trocar was placed in this location. A 5 mm 30 degree laparoscope was placed into the abdominal cavity, and the abdomen was surveyed. The patient was placed in Trendelenburg and slightly to the left. One 5 mm tro car was placed in the right upper quadrant, and one 12 mm trocar was placed in the left lower quadrant under direct visualization. The right colon was identified and traced down to the cecum. The appendix was identified and elevated anteriorly and medially. A window was created at the base of the appendix with a [place] dissector. The Endo KAIA stapler was used to transect the appendix at its base through noninflamed tissue, and subsequently the mesoappendix. The appendix was placed in an Endo Catch bag, and removed via the left lower quadrant port site. Attention was turned to hemostasis, which was excellent. The abdomen was copiously irrigated and suctioned free, and again hemostasis was found to be excellent. All trochars removed under direct visualization. The abdomen was desufflated. The fascia in the 12 mm port site was closed with a 0 Vicryl suture. The skin was closed with a running 4-0 Monocryl subcuticular stitch. Dermabond was applied. The patient tolerated the procedure without complication, and was transferred in stable condition to the PACU. All instrument, needle, and sponge counts were correct at the end of the case. I attest to the content of the Intraoperative Record and any orders documented therein. Any exceptions are noted below.
[2024-07-08] MEDS ORDERED: NALOXONE HCL 0.4 MG/1 ML VIAL/CARP ONE (18:45)
--- NOTE | 2024-07-08 19:05 | Anesthesiology Progress Note ---
Date of Service July 08, 2024 Anesthesia Post Procedure Vital Signs Vital Signs: Temp Pulse Pulse Resp BP BP Pulse Ox 07/08/24 19:00 72 16 130/69 100 07/08/24 18:50 71 19 132/73 100 07/08/24 18:40 82 21 137/77 99 07/08/24 18:30 36.0 C L 90 20 143/73 H 99 07/08/24 16:48 07/08/24 16:30 50 L 18 157/92 H 98 07/08/24 16:00 48 L 20 144/91 H 99 07/08/24 15:30 61 20 135/85 100 07/08/24 15:00 53 L 18 147/99 H 100 07/08/24 14:31 50 L 17 142/85 H 98 07/08/24 14:13 53 L 07/08/24 13:13 36.8 C 55 L 18 148/96 H 96 O2 Del Method O2 Flow Rate 07/08/24 19:00 Oxymask 4 07/08/24 18:50 Oxymask 4 07/08/24 18:40 Oxymask 4 07/08/24 18:30 Oxymask 8 07/08/24 16:48 Room Air 07/08/24 16:30 Room Air 07/08/24 16:00 Room Air 07/08/24 15:30 Room Air 07/08/24 15:00 Room Air 07/08/24 14:31 Room Air 07/08/24 14:13 07/08/24 13:13 Room Air Pain Intensity Lower Abdomen: Pain Intensity: 7 Transfer of Care Handoff Completed per policy Notes Mental Status: alert / awake / arousable Patient Amnestic to Procedure: Yes Nausea / Vomiting: adequately controlled Pain: adequately controlled Airway Patency, RR, SpO2: stable & adequate BP & HR: stable & adequate Hydration State: stable & adequate Anesthetic Complications: no major complications apparent and Pt Satisfied with anesthetic care Notes: Pt only received Fentanyl 100mcg IV during the course of his operative procedure. Despite this, he required narcan 1.2mg IVx1 for reversal. This was given at 1812. Pt interiewed in phase 1, AAOx3 comfortable RR normal. Pt may enter phase 2 at 1913 as he required extended recovery for receiving narcan.
[2024-07-08] MEDS ORDERED: oxyCODONE/ACETAMINOPHEN 5mg/325mg TAB PO PRN (19:53)
[2024-07-08] MEDS ORDERED: PROMETHAZINE 12.5 MG/50.5 ML BAG IV PRN (19:53)
[2024-07-08] MEDS ORDERED: KETOROLAC 30 MG/ML VIAL IV PRN (19:53)
[2024-07-08] MEDS ORDERED: MoRPHine SULFATE 2 MG/ML CARP IV PRN (19:53)
[2024-07-08] MEDS: diphenhydrAMINE Capsule 25 MG CAP PO PRN (22:35)
[2024-07-09] MEDS: ENOXAPARIN INJ 40 MG/0.4 ML SYR SQ SCH (07:16)
--- NOTE | 2024-07-09 07:50 | Surgery Progress Note ---
Date of Service July 09, 2024 Assessment & Plan (1) Acute appendicitis: Plan: doing well POD#1 s/p lap appendectomy advance diet as tolerated OOB ambulate DVT prophylaxis D/C to home this am Admission and Anticipated Discharge Date Admission Date: July 08, 2024 Subjective doing well; minimal pain; no nausea/vomiting Physical Exam Physical Exam: NAD A&Ox3 NCAT abd: soft, NTND incisions C/D/I; mild ecchymosis Results & Data Vital Signs (Past 12 Hours) Vital Signs Temp Pulse Resp BP Pulse Ox O2 Del Method 07/09/24 07:07 36.5 C 64 14 103/59 L 96 Room Air 07/09/24 02:59 36.6 C 70 16 96/56 L 96 Room Air 07/08/24 22:31 36.4 C L 82 16 118/72 96 Room Air 07/08/24 21:29 36.3 C L 79 16 134/81 98 Room Air 07/08/24 20:31 36.4 C L 70 16 121/72 98 Room Air 07/08/24 20:00 36.3 C L 74 16 129/77 97 Room Air (1) Acute appendicitis Acute appendicitis type: unspecified acute appendicitis type Qualified Code(s): K35.80 - Unspecified acute appendicitis
[2024-07-09] MEDS: oxyCODONE/ACETAMINOPHEN 5mg/325mg TAB PO PRN (10:47)
[2024-07-09 11:35] VITALS: BP 122/68; PULSE 66; RESP 17; TEMP 98.2; O2SAT 97
--- NOTE | 2024-07-09 13:59 | Electrocardiogram Report ---
Test Reason : Blood Pressure : */* mmHG Vent. Rate : 48 BPM Atrial Rate : 48 BPM P-R Int : 146 ms QRS Dur : 94 ms QT Int : 466 ms P-R-T Axes : 52 36 31 degrees QTcB Int : 416 ms Sinus bradycardia Otherwise normal ECG When compared with ECG of 23-Apr-2020 20:31, Vent. rate has decreased by 26 bpm Confirmed by Ryan Bowling ([id number]) on 07/09/2024 1:58:51 PM Referred By: REFERRED SELF Confirmed By: Ryan Bowling
== END 2024-07-09 13:03 | disposition home or self-care (01) ==
LOC: ED 13:10 → 3E 16:45 → OR 16:45